=== PATIENT | female | born 1965 | race Caucasian/White ===

== ENCOUNTER 2016-09-09 15:47 | Emergency (ER) | payer OTHER ==
[2016-09-09 15:57] VITALS: BP 104/78
[2016-09-09] MEDS ORDERED: Sodium Chloride 0.9% 10 ML Syringe FLUSH PRN (16:19)
[2016-09-09] MEDS ORDERED: Sodium Chloride 0.9% 1,000 ML IV SCH (16:30)
--- NOTE | 2016-09-09 17:10 | EDM.PDOC ---
ED HPI GENERAL MEDICAL PROBLEM - General Chief Complaint: Genitourinary Problem Stated Complaint: LOWER BACK PAIN Time Seen by Provider: 09/09/16 16:09 Source of Information: Reports: Patient History Limitations: Reports: No Limitations - History of Present Illness INITIAL COMMENTS - FREE TEXT/NARRATIVE: The patient presents with bilateral low back pain that has gotten worse over the past week. She denies any injury. She did have surgery on her back a few months ago. She also has been having some hematuria, frequency and burning with urination. She went to the walk in clinic and she was checked for a UTI and bacterial vaginosis. She was put on antibiotics until results came back and they were negative. She already finished the antibiotics. She saw Raquel Whitt in the ER and she was started on some flexeril for her back. That has not helped much. She has fever and chills with it at times and she has some abdominal pain at times. She also had breast augmentation done 2 months ago and she had a blister develop and that has opened up and there has been a sore for nearly 2 months. She has been on oral antibiotics and topical antibiotics with no help. Onset: Gradual Duration: Week(s): (1) Location: Reports: Abdomen, Back Quality: Reports: Ache Severity: Moderate Improves with: Reports: None Worsens with: Reports: Movement Context: Reports: Other (No injury noted) Associated Symptoms: Reports: Fever/Chills. Denies: Chest Pain, Cough, Nausea/ Vomiting, Shortness of Breath Bilateral Flank Pain Score (Numeric/FACES): 5 - Related Data Allergies Allergy/AdvReac Type Severity Reaction Status Date / Time lactose Allergy Hives Verified 12/28/14 18:12 latex Allergy Rash Verified 09/09/16 15:57 morphine Allergy Nausea Verified 12/28/14 18:12 pseudoephedrine Allergy Other Verified 12/28/14 18:12 triazolam Allergy Other Verified 12/28/14 18:12 Home Meds: Home Meds Multivitamin [Gummi Bear Multivitamin] 1 tab PO DAILY 12/28/14 [History] Tylenol. 1,300 mg PO Q8H PRN 12/28/14 [History] Vitamin B Complex 3 cap PO DAILY 12/28/14 [History] Cephalexin [Keflex] 500 mg PO Q6HR #40 cap 09/09/16 [Rx] Cyclobenzaprine [Flexeril] 10 mg PO DAILY 09/09/16 [History] DULoxetine [Cymbalta] 60 mg PO DAILY 09/09/16 [History] Lisinopril/Hydrochlorothiazide [Lisinopril-Hctz 10-12.5 mg Tab] 1 tab PO DAILY 09/09/16 [History] Phenazopyridine HCl 200 mg PO DAILY 09/09/16 [History] buPROPion [Wellbutrin XL] 1 tab PO DAILY 09/09/16 [History] Past Medical History Other HEENT History: reading glasses Cardiovascular History: Reports: Hypertension Other OB/BYN History: Psychiatric History: Reports: Anxiety, Depression Other Hematologic History: Factor V Social & Family History - Tobacco Use Smoking Status *Q: Never Smoker - Caffeine Use Caffeine Use: Reports: None - Recreational Drug Use Recreational Drug Use: No ED ROS GENERAL - Review of Systems Review Of Systems: See Below Constitutional: Reports: No Symptoms HEENT: Reports: No Symptoms Respiratory: Reports: No Symptoms Cardiovascular: Reports: No Symptoms Endocrine: Reports: No Symptoms GI/Abdominal: Reports: Abdominal Pain : Reports: Dysuria, Frequency Musculoskeletal: Reports: Back Pain (bilateral low back) Skin: Reports: Other (Rash to the left breast) ED EXAM, RENAL/ - Physical Exam Exam: See Below Exam Limited By: No Limitations General Appearance: Alert, No Apparent Distress Ears: Normal External Exam Nose: Normal Inspection Head: Atraumatic, Normocephalic Neck: Normal Inspection Respiratory/Chest: No Respiratory Distress, Lungs Clear, Normal Breath Sounds Cardiovascular: Regular Rate, Rhythm, No Edema, No Murmur GI/Abdominal: Soft, Non-Tender, No Organomegaly, No Mass Back Exam: Normal Inspection Extremities: Normal Inspection Neurological: Alert, Oriented, No Motor/Sensory Deficits Course - Vital Signs Last Recorded V/S: Last Vital Signs Temp 99.0 F 09/09/16 15:52 Pulse 90 09/09/16 15:52 Resp 18 09/09/16 15:52 BP 104/78 09/09/16 15:52 Pulse Ox 98 09/09/16 15:52 - Orders/Labs/Meds Orders: Active Orders 24 hr Category Date Time Status Peripheral IV Care [RC] . DIRECTED Care 09/09/16 16:20 Active Sodium Chloride 0.9% [Normal Saline] 1,000 ml Med 09/09/16 16:30 Active IV ASDIRECTED Sodium Chloride 0.9% [Saline Flush] Med 09/09/16 16:19 Active 10 ml FLUSH ASDIRECTED PRN Peripheral IV Insertion Adult [OM.PC] Stat Oth 09/09/16 16:19 Ordered Medication Orders Sodium Chloride (Normal Saline) 1,000 mls @ 125 mls/hr IV ASDIRECTED ELIO Last Admin: 09/09/16 16:38 Dose: 125 mls/hr Sodium Chloride (Saline Flush) 10 ml FLUSH ASDIRECTED PRN PRN Reason: Keep Vein Open Last Admin: 09/09/16 16:38 Dose: 10 ml Labs: Laboratory Tests 09/09/16 09/09/16 09/09/16 Range/Units 16:39 16:39 16:40 WBC 7.38 (3.98-10.04) K/mm3 RBC 4.29 (3.98-5.22) M/mm3 Hgb 12.8 (11.2-15.7) gm/L Hct 38.9 (34.1-44.9) % MCV 90.7 (79.4-94.8) fl MCH 29.8 (25.6-32.2) pg MCHC 32.9 (32.2-35.5) g/dl RDW Std Deviation 43.1 (36.4-46.3) fL Plt Count 256 (182-369) K/mm3 MPV 9.0 L (9.4-12.3) fl Neut % (Auto) 52.7 (34.0-71.1) % Lymph % (Auto) 30.8 (19.3-51.7) % [place] % (Auto) 9.8 (4.7-12.5) % Eos % (Auto) 6.1 H (0.7-5.8) Baso % (Auto) 0.5 (0.1-1.2) % Neut # (Auto) 3.89 (1.56-6.13) K/mm3 Lymph # (Auto) 2.27 (1.18-3.74) K/mm3 [place] # (Auto) 0.72 H (0.24-0.36) K/mm3 Eos # (Auto) 0.45 H (0.04-0.36) K/mm3 Baso # (Auto) 0.04 (0.01-0.08) K/mm3 Sodium 142 (136-145) mEq/L Potassium 3.6 (3.5-5.1) mEq/L Chloride 104 (98-107) mEq/L Carbon Dioxide 32 (21-32) mEq/L Anion Gap 9.6 (5-15) BUN 13 (7-18) mg/dL Creatinine 0.9 (0.55-1.02) mg/dL Est Cr Clr Drug Dosing 65.05 mL/min Estimated GFR (MDRD) > 60 (>60) mL/min BUN/Creatinine Ratio 14.4 (14-18) Glucose 103 (74-106) mg/dL Calcium 8.8 (8.5-10.1) mg/dL Total Bilirubin 0.3 (0.2-1.0) mg/dL AST 26 (15-37) U/L ALT 42 (14-59) U/L Alkaline Phosphatase 65 (46-116) U/L Total Protein 7.0 (6.4-8.2) g/dl Albumin 3.4 (3.4-5.0) g/dl Globulin 3.6 gm/dL Albumin/Globulin Ratio 0.9 L (1-2) Lipase 105 (73-393) U/L Urine Color [place] H (Yellow) Urine Appearance Slt cloudy H (Clear) Urine pH 5.0 (5.0-8.0) Ur Specific [place] 1.015 (1.005-1.030) Urine Protein 1+ H (Negative) Urine Glucose (UA) Trace H (Negative) Urine Ketones Trace H (Negative) Urine Occult Blood Negative (Negative) Urine Nitrite Positive H (Negative) Urine Bilirubin 1+ H (Negative) Urine Urobilinogen 2.0 H (0.2-1.0) Ur Leukocyte Esterase 3+ H (Negative) Urine RBC 0-5 (0-5) /hpf Urine WBC 0-5 (0-5) /hpf Ur Epithelial Cells 5-10 H (0-5) /hpf Urine Bacteria Few (FEW) /hpf Hyaline Casts 5-10 H (0-5) /lpf Urine Mucus Few (FEW) /hpf Meds: Medications Generic Name Dose Route Start Last Admin Trade Name Freq PRN Reason Stop Dose Admin Sodium Chloride 1,000 mls @ 125 mls/hr 09/09/16 16:30 09/09/16 16:38 Normal Saline IV 125 mls/hr ASDIRECTED ELIO Administration Sodium Chloride 10 ml 09/09/16 16:19 09/09/16 16:38 Saline Flush FLUSH 10 ml ASDIRECTED PRN Administration Keep Vein Open - Re-Assessments/Exams Free Text/Narrative Re-Assessment/Exam: 09/09/16 17:11 I ordered an IV saline lock, labs, UA and CT of her abdomen and pelvis to look fro a kidney stone. 09/09/16 17:[address] shows incidental findings and no renal calculi. I examined her left breast and she has an ulcer to the lower breast. There is some yellow drainage along the edges. I will have her stop keeping it moist and get her on some keflex that will help with that infection and also the UTI that she has. Departure - Departure Time of Disposition: 18:00 Disposition: Home, Self-Care 01 Condition: good Clinical Impression: UTI, Urinary tract infectious disease Wound of left breast Qualifiers: Encounter type: initial encounter Qualified Code(s): S21.002A - Unspecified open wound of left breast, initial encounter - Discharge Information Prescriptions: Cephalexin [Keflex] 500 mg PO Q6HR #40 cap Referrals: Raquel Whitt PA-C [Primary Care Provider] - 1 Week Forms: ED Department Discharge Additional Instructions: Try to keep the area on your breast dry and take the keflex. Please return if you are worse. Follow up Dr Amandeep ann. - My Orders Last 24 Hours: My Active Orders 09/09/16 16:19 Sodium Chloride 0.9% [Saline Flush] 10 ml FLUSH ASDIRECTED PRN Peripheral IV Insertion Adult [OM.PC] Stat 09/09/16 16:20 Peripheral IV Care [RC] . DIRECTED 09/09/16 16:30 Sodium Chloride 0.9% [Normal Saline] 1,000 ml IV ASDIRECTED - Assessment/Plan Last 24 Hours: My Active Orders 09/09/16 16:19 Sodium Chloride 0.9% [Saline Flush] 10 ml FLUSH ASDIRECTED PRN Peripheral IV Insertion Adult [OM.PC] Stat 09/09/16 16:20 Peripheral IV Care [RC] . DIRECTED 09/09/16 16:30 Sodium Chloride 0.9% [Normal Saline] 1,000 ml IV ASDIRECTED
--- NOTE | 2016-09-09 17:15 | CT ---
CT abdomen and pelvis Technique: Multiple axial sections were obtained from above the dome of the diaphragm inferiorly through the pubic symphysis. Intravenous and oral contrast not utilized. Study has been performed as a ureteral stone protocol. Findings: Right and left kidneys show no abnormal calcifications. No ureteral dilatation or ureteral stone is seen. No bladder calculi are seen. Visualized lung bases shows nothing acute. Liver and spleen have an unremarkable noncontrast appearance. Previous gastric surgery is noted. Adrenal glands show no nodule. Pancreas appears within normal limits. Aorta shows no aneurysmal dilatation. Appendix is not visualized with certainty. No pelvic mass or adenopathy seen. No free fluid or inflammatory change is seen within the abdomen or within the pelvis. Bone window settings were reviewed which shows mild scoliosis within the spine with mild degenerative change. Impression: 1. Incidental findings as noted above. 2. No renal calculi, ureteral dilatation or ureteral stone is seen. Nothing acute is identified. Diagnostic code #2
== END 2016-09-09 18:10 | disposition home or self-care (01) ==
LOC: JD.ED 15:47
DX: N39.0 Urinary tract infection, site not specified (principal); S21.002A Unspecified open wound of left breast, initial encounter; I10 Essential (primary) hypertension; F41.9 Anxiety disorder, unspecified; F32.9 Major depressive disorder, single episode, unspecified; Z79.899 Other long term (current) drug therapy; Z88.5 Allergy status to narcotic agent; Z88.8 Allergy status to other drugs, medicaments and biological substances; Z91.040 Latex allergy status; Z91.018 Allergy to other foods
CPT/HCPCS: 36415; 74176; 80053; 81001; 83690; 85025; 96360; 99284; J7040; J7050

== ENCOUNTER 2017-01-16 13:50 | Inpatient (IN) | payer OTHER ==
[~2017-01-16 13:50] MED LIST: Naloxone 2 MG/2 ML Syringe ONE
[2017-01-16] MEDS ORDERED: Sodium Chloride 0.9% 10 ML Syringe FLUSH PRN (14:00)
[2017-01-16] MEDS ORDERED: Succinylcholine 200 MG/10 ML MDV IV ONE (14:03)
[2017-01-16] MEDS ORDERED: Etomidate 2 MG/ML 20 ML SDV IVPUSH ONE ×2 (14:03→22:22)
[2017-01-16 14:29] LABS: ACETAMINOPHEN 32 ug/mL (10-30)
[2017-01-16] MEDS: Sodium Chloride 0.9% 1,000 ML IV SCH ×3 (14:51→19:15)
--- NOTE | 2017-01-16 14:58 | CT ---
Head CT Technique: Multiple axial sections through the brain were obtained. Intravenous contrast was not utilized. Comparison: No prior intracranial imaging. Findings: Ventricles along with basal cisterns and sulci over the convexities appear within normal limits for the patient's age. No abnormal parenchymal densities are seen. No evidence of intracranial hemorrhage. No midline shift or mass effect is seen. Bone window settings were reviewed which shows no acute calvarial abnormality. Hypoplastic under aerated left mastoid sinus is incidentally noted as a normal variant. Impression: 1. Incidental finding. 2. Nothing acute is identified on noncontrast head CT study. Diagnostic code #1
--- NOTE | 2017-01-16 15:13 | EDM.PDOC ---
ED HPI GENERAL MEDICAL PROBLEM - General Chief Complaint: Drug or Alcohol Abuse Stated Complaint: [facility] Time Seen by Provider: 01/16/17 14:00 Source of Information: Reports: EMS, Family History Limitations: Reports: Altered Mental Status - History of Present Illness INITIAL COMMENTS - FREE TEXT/NARRATIVE: The patient texted her that she was going to hurt herself. She was found at home with some empty pill bottles. They included clonazepam 0.5mg, cyclobenzaprine, duloxetine, aleve pm and acetaminophen. Most pills were gone. She would localize to pain but she would not talk or open her eyes. He family says she has been depressed. She has never done anything like this before. There was also some alcohol near her. EMS brought her in. Onset: Gradual Duration: Minutes: Severity: Severe Improves with: Reports: None Worsens with: Reports: None - Related Data Allergies Allergy/AdvReac Type Severity Reaction Status Date / Time lactose Allergy Hives Verified 12/28/14 18:12 latex Allergy Rash Verified 09/09/16 15:57 morphine Allergy Nausea Verified 12/28/14 18:12 pseudoephedrine Allergy Other Verified 12/28/14 18:12 triazolam Allergy Other Verified 12/28/14 18:12 Home Meds: Home Meds Multivitamin [Gummi Bear Multivitamin] 1 tab PO DAILY 12/28/14 [History] Tylenol. 1,300 mg PO Q8H PRN 12/28/14 [History] Vitamin B Complex 3 cap PO DAILY 12/28/14 [History] Cephalexin [Keflex] 500 mg PO Q6HR #40 cap 09/09/16 [Rx] Cyclobenzaprine [Flexeril] 10 mg PO DAILY 09/09/16 [History] DULoxetine [Cymbalta] 60 mg PO DAILY 09/09/16 [History] Lisinopril/Hydrochlorothiazide [Lisinopril-Hctz 10-12.5 mg Tab] 1 tab PO DAILY 09/09/16 [History] Phenazopyridine HCl 200 mg PO DAILY 09/09/16 [History] buPROPion [Wellbutrin XL] 1 tab PO DAILY 09/09/16 [History] Past Medical History Other HEENT History: reading glasses Cardiovascular History: Reports: Hypertension Other OB/BYN History: Psychiatric History: Reports: Anxiety, Depression Other Hematologic History: Factor V Social & Family History - Family History Family Medical History: Noncontributory - Tobacco Use Smoking Status *Q: Never Smoker - Caffeine Use Caffeine Use: Reports: Coffee - Recreational Drug Use Recreational Drug Use: No ED ROS GENERAL - Review of Systems Review Of Systems: Unable To Obtain - Physical Exam Exam: See Below Exam Limited By: Altered Mental Status General Appearance: Lethargic Eye Exam: Bilateral Eye: PERRL Ears: Normal External Exam Nose: Normal Inspection Head Exam: Atraumatic, Normocephalic Neck: Normal Inspection Respiratory/Chest: No Respiratory Distress, Lungs Clear, Normal Breath Sounds Cardiovascular: Regular Rate, Rhythm, No Edema, No Murmur GI/Abdominal: Soft, Non-Tender, No Organomegaly, No Mass Neuro Exam (Abbreviated): Other (Lethargic and she will localize to pain but she does not talk or moan and she does not open her eyes.) Endotracheal Intubation - Endotracheal Intubation Time of Intubation: 14:00 ET Intubation Indication: Airway Protection Preparation: Suction, Balloon Tested, BVM Set Up, Difficult Airway Equip Pre-Oxygenation: Other (NC at 6L) Anesthesia Meds: Etomidate, Succinylcholine Placement: Orotracheal, Cuffed, Uncomplicated Placement Cords Visualized: Yes Number of Attempts: 1 Confirmed By: CO2 Indicator, Bilateral Breath Sounds, Chest Xray Tube Secured By: By RT EKG INTERPRETATION EKG Date: 01/16/17 Time: 14:38 Rhythm: NSR Rate (Beats/Min): 79 [place]: Normal P-Wave: Present QRS: Normal ST-T: Normal QT: Normal Course - Vital Signs Last Recorded V/S: Last Vital Signs Temp 98.5 F 01/16/17 14:31 Pulse 94 01/16/17 14:31 Resp 14 01/16/17 14:31 BP 121/49 L 01/16/17 14:31 Pulse Ox 100 01/16/17 14:31 - Orders/Labs/Meds Orders: Active Orders 24 hr Category Date Time Status Cardiac Monitoring [RC] . DIRECTED Care 01/16/17 14:00 Active EKG Documentation Completion [RC] STAT Care 01/16/17 14:01 Active Peripheral IV Care [RC] . DIRECTED Care 01/16/17 14:01 Active Ventilator Assessment [RT Ventilator, Adult] [RC] Care 01/16/17 14:10 Active ASDIRECTED Chest 1V Frontal [CR] Stat Exams 01/16/17 14:01 Taken Propofol [Diprivan 100 ML] 100 ml Med 01/16/17 14:15 Active IV TITRATE Sodium Chloride 0.9% [Normal Saline] 1,000 ml Med 01/16/17 14:00 Active IV ASDIRECTED Sodium Chloride 0.9% [Saline Flush] Med 01/16/17 14:00 Active 10 ml FLUSH ASDIRECTED PRN Desired Level of Sedation (RASS) [AST] Click To Edit Oth 01/16/17 14:04 Ordered Peripheral IV Insertion Adult [OM.PC] Stat Oth 01/16/17 14:00 Ordered Medication Orders Sodium Chloride (Normal Saline) 1,000 mls @ 125 mls/hr IV ASDIRECTED ELIO Last Admin: 01/16/17 14:51 Dose: 125 mls/hr Propofol (Diprivan 100 Ml) 100 mls @ 1.89 mls/hr IV TITRATE ELIO; 5 MCG/KG/MIN PRN Reason: Protocol Last Admin: 01/16/17 14:53 Dose: 5 mcg/kg/min, 1.89 mls/hr Sodium Chloride (Saline Flush) 10 ml FLUSH ASDIRECTED PRN PRN Reason: Keep Vein Open Last Admin: 01/16/17 14:52 Dose: 10 ml Labs: Laboratory Tests 01/16/17 01/16/17 01/16/17 Range/Units 14:00 14:00 14:00 WBC 8.47 (3.98-10.04) K/mm3 RBC 4.26 (3.98-5.22) M/mm3 Hgb 12.9 (11.2-15.7) gm/L Hct 37.9 (34.1-44.9) % MCV 89.0 (79.4-94.8) fl MCH 30.3 (25.6-32.2) pg MCHC 34.0 (32.2-35.5) g/dl RDW Std Deviation 41.3 (36.4-46.3) fL Plt Count 260 (182-369) K/mm3 MPV 9.0 L (9.4-12.3) fl Neut % (Auto) 40.0 (34.0-71.1) % Lymph % (Auto) 38.6 (19.3-51.7) % [place] % (Auto) 8.0 (4.7-12.5) % Eos % (Auto) 12.5 H (0.7-5.8) Baso % (Auto) 0.7 (0.1-1.2) % Neut # (Auto) 3.38 (1.56-6.13) K/mm3 Lymph # (Auto) 3.27 (1.18-3.74) K/mm3 [place] # (Auto) 0.68 H (0.24-0.36) K/mm3 Eos # (Auto) 1.06 H (0.04-0.36) K/mm3 Baso # (Auto) 0.06 (0.01-0.08) K/mm3 Sodium 143 (136-145) mEq/L Potassium 3.4 L (3.5-5.1) mEq/L Chloride 104 (98-107) mEq/L Carbon Dioxide 29 (21-32) mEq/L Anion Gap 13.4 (5-15) BUN 9 (7-18) mg/dL Creatinine 0.8 (0.55-1.02) mg/dL Est Cr Clr Drug Dosing TNP Estimated GFR (MDRD) > 60 (>60) mL/min BUN/Creatinine Ratio 11.3 L (14-18) Glucose 84 (74-106) mg/dL Calcium 8.7 (8.5-10.1) mg/dL Total Bilirubin 0.8 (0.2-1.0) mg/dL AST 24 (15-37) U/L ALT 30 (14-59) U/L Alkaline Phosphatase 48 (46-116) U/L Troponin I 0.024 (0.00-0.056) ng/mL Total Protein 6.4 (6.4-8.2) g/dl Albumin 4.0 (3.4-5.0) g/dl Globulin 2.4 gm/dL Albumin/Globulin Ratio 1.7 (1-2) Salicylates 1.1 L (2.8-20) mg/dL Urine Opiates Screen (NEGATIVE) Ur Buprenorphine Scrn (NEGATIVE) Ur Oxycodone Screen (NEGATIVE) Urine Methadone Screen (NEGATIVE) Ur Propoxyphene Screen (NEGATIVE) Acetaminophen 32 H (10-30) ug/mL Ur Barbiturates Screen (NEGATIVE) Ur Tricyclics Screen (NEGATIVE) Ur Phencyclidine Scrn (NEGATIVE) Ur Amphetamine Screen (NEGATIVE) U Methamphetamines Scrn (NEGATIVE) U Benzodiazepines Scrn (NEGATIVE) U Cocaine Metab Screen (NEGATIVE) U Marijuana (THC) Screen (NEGATIVE) Ethyl Alcohol 0.10 (0.00) gm% 01/16/17 Range/Units 14:30 WBC (3.98-10.04) K/mm3 RBC (3.98-5.22) M/mm3 Hgb (11.2-15.7) gm/L Hct (34.1-44.9) % MCV (79.4-94.8) fl MCH (25.6-32.2) pg MCHC (32.2-35.5) g/dl RDW Std Deviation (36.4-46.3) fL Plt Count (182-369) K/mm3 MPV (9.4-12.3) fl Neut % (Auto) (34.0-71.1) % Lymph % (Auto) (19.3-51.7) % [place] % (Auto) (4.7-12.5) % Eos % (Auto) (0.7-5.8) Baso % (Auto) (0.1-1.2) % Neut # (Auto) (1.56-6.13) K/mm3 Lymph # (Auto) (1.18-3.74) K/mm3 [place] # (Auto) (0.24-0.36) K/mm3 Eos # (Auto) (0.04-0.36) K/mm3 Baso # (Auto) (0.01-0.08) K/mm3 Sodium (136-145) mEq/L Potassium (3.5-5.1) mEq/L Chloride (98-107) mEq/L Carbon Dioxide (21-32) mEq/L Anion Gap (5-15) BUN (7-18) mg/dL Creatinine (0.55-1.02) mg/dL Est Cr Clr Drug Dosing Estimated GFR (MDRD) (>60) mL/min BUN/Creatinine Ratio (14-18) Glucose (74-106) mg/dL Calcium (8.5-10.1) mg/dL Total Bilirubin (0.2-1.0) mg/dL AST (15-37) U/L ALT (14-59) U/L Alkaline Phosphatase (46-116) U/L Troponin I (0.00-0.056) ng/mL Total Protein (6.4-8.2) g/dl Albumin (3.4-5.0) g/dl Globulin gm/dL Albumin/Globulin Ratio (1-2) Salicylates (2.8-20) mg/dL Urine Opiates Screen Negative (NEGATIVE) Ur Buprenorphine Scrn Negative (NEGATIVE) Ur Oxycodone Screen Negative (NEGATIVE) Urine Methadone Screen Negative (NEGATIVE) Ur Propoxyphene Screen Negative (NEGATIVE) Acetaminophen (10-30) ug/mL Ur Barbiturates Screen Negative (NEGATIVE) Ur Tricyclics Screen Negative (NEGATIVE) Ur Phencyclidine Scrn Negative (NEGATIVE) Ur Amphetamine Screen Negative (NEGATIVE) U Methamphetamines Scrn Negative (NEGATIVE) U Benzodiazepines Scrn Negative (NEGATIVE) U Cocaine Metab Screen Negative (NEGATIVE) U Marijuana (THC) Screen Negative (NEGATIVE) Ethyl Alcohol (0.00) gm% Meds: Medications Generic Name Dose Route Start Last Admin Trade Name Freq PRN Reason Stop Dose Admin Sodium Chloride 1,000 mls @ 125 mls/hr 01/16/17 14:00 01/16/17 14:51 Normal Saline IV 125 mls/hr ASDIRECTED ELIO Administration Propofol 100 mls @ 1.89 mls/hr 01/16/17 14:15 01/16/17 14:53 Diprivan 100 Ml IV 5 mcg/kg/min TITRATE ELIO 1.89 mls/hr Protocol Administration 5 MCG/KG/MIN Sodium Chloride 10 ml 01/16/17 14:00 01/16/17 14:52 Saline Flush FLUSH 10 ml ASDIRECTED PRN Administration Keep Vein Open Discontinued Medications Generic Name Dose Route Start Last Admin Trade Name Freq PRN Reason Stop Dose Admin Etomidate 20 mg 01/16/17 14:03 01/16/17 14:52 Amidate IVPUSH 01/16/17 14:04 20 mg ONETIME ONE Administration Naloxone HCl 2 mg 01/16/17 14:02 01/16/17 14:52 Narcan IVPUSH 01/16/17 14:03 2 mg ONETIME ONE Administration Succinylcholine Chloride 100 mg 01/16/17 14:03 01/16/17 14:52 Quelicin IV 01/16/17 14:04 100 mg ONETIME ONE Administration - Re-Assessments/Exams Free Text/Narrative Re-Assessment/Exam: 01/16/17 15:17 The patient came in by EMS. She would localize to pain. I was worried about her airway so I secured her airway. I used a 7.5tube, etomidate and succinylcholine. I used a propofol drip after for sedation. Her CXR looked good. Her EKG shows a NSR with no acute changes. Her CBC and CMP look good. Her head CT was negative. Her UDS was negative. Her alcohol was 0.1. Her acetaminophen and salicylates were negative at this time. Poison control recommended redrawing a acetaminophen and salicylate level. I will do that and an ABG. Dr Tate is aware of the patient. 01/16/17 15:25 Critical care time is 1 hour. Departure - Departure Time of Disposition: 15:25 Disposition: Admitted As Inpatient 64 Condition: Critical Clinical Impression: Alcohol abuse Overdose Qualifiers: Encounter type: initial encounter Injury intent: intentional self-harm Qualified Code(s): T50.902A - Poisoning by unspecified drugs, medicaments and biological substances, intentional self-harm, initial encounter - Discharge Information - My Orders Last 24 Hours: My Active Orders 01/16/17 14:00 Cardiac Monitoring [RC] . DIRECTED Sodium Chloride 0.9% [Normal Saline] 1,000 ml IV ASDIRECTED Sodium Chloride 0.9% [Saline Flush] 10 ml FLUSH ASDIRECTED PRN Peripheral IV Insertion Adult [OM.PC] Stat 01/16/17 14:01 EKG Documentation Completion [RC] STAT Peripheral IV Care [RC] . DIRECTED Chest 1V Frontal [CR] Stat 01/16/17 14:04 Desired Level of Sedation (RASS) [AST] Click To Edit 01/16/17 14:10 Ventilator Assessment [RT Ventilator, Adult] [RC] ASDIRECTED 01/16/17 14:15 Propofol [Diprivan 100 ML] 100 ml IV TITRATE - Assessment/Plan Last 24 Hours: My Active Orders 01/16/17 14:00 Cardiac Monitoring [RC] . DIRECTED Sodium Chloride 0.9% [Normal Saline] 1,000 ml IV ASDIRECTED Sodium Chloride 0.9% [Saline Flush] 10 ml FLUSH ASDIRECTED PRN Peripheral IV Insertion Adult [OM.PC] Stat 01/16/17 14:01 EKG Documentation Completion [RC] STAT Peripheral IV Care [RC] . DIRECTED Chest 1V Frontal [CR] Stat 01/16/17 14:04 Desired Level of Sedation (RASS) [AST] Click To Edit 01/16/17 14:10 Ventilator Assessment [RT Ventilator, Adult] [RC] ASDIRECTED 01/16/17 14:15 Propofol [Diprivan 100 ML] 100 ml IV TITRATE
[2017-01-16] MEDS ORDERED: Midazolam 1 MG/ML 5 ML SDV IVPUSH ONE (15:34)
[2017-01-16] MEDS ORDERED: Midazolam 1 MG/ML 2 ML SDV ONE (15:46)
[2017-01-16] MEDS ORDERED: Morphine 2 MG/ML Syringe IVPUSH PRN (16:12)
[2017-01-16] MEDS ORDERED: Albuterol/Ipratropium 3.0-0.5 MG/3 ML Neb Soln NEB PRN (16:12)
[2017-01-16] MEDS ORDERED: Ondansetron 4 MG/2 ML SDV IV PRN (16:12)
[2017-01-16] MEDS ORDERED: hydrALAZINE 20 MG/ML SDV IVPUSH PRN (16:29)
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
[2017-01-16] MEDS ORDERED: Acetylcysteine 20% 200 MG/ML 30 ML SDV IV ONE (16:49)
[2017-01-16] MEDS ORDERED: ACETYLCYSTEINE IV SCH ×2 (17:30)
[2017-01-16] MEDS ORDERED: WATER IV SCH ×2 (17:30)
[2017-01-16] MEDS ORDERED: DEXTROSE 5% IV SCH ×2 (17:30)
[2017-01-16] MEDS ORDERED: Succinylcholine 200 MG/10 ML MDV ONE (22:22)
[2017-01-17] MEDS: Sodium Chloride 0.9% 1,000 ML IV SCH ×2 (03:15→11:12)
--- NOTE | 2017-01-17 08:22 | CR ---
Chest: Portable view of the chest was obtained. Comparison: Previous chest x-ray of 03/17/16. Heart size and mediastinum are within normal limits. Endotracheal tube is seen with tip lying slightly below the level of the clavicles in satisfactory position. Nasogastric tube is seen with tip lying within the proximal stomach. Lungs are clear for portable supine technique. Bony structures are grossly intact. Impression: 1. Satisfactory position of endotracheal tube. Nasogastric tube lies within the proximal stomach. 2. Nothing acute is otherwise seen on frontal chest x-ray. Diagnostic code #3
[2017-01-17] MEDS ORDERED: Pantoprazole 40 MG Vial IVPUSH SCH (09:00)
--- NOTE | 2017-01-17 09:54 | CR ---
Chest: Frontal view of the chest was obtained. Comparison: Previous chest x-ray of 01/16/17. Heart size and mediastinum are within normal limits. Previous nasogastric tube and endotracheal tube have been removed. Lungs are clear. Bony structures are grossly intact. Impression: 1. Endotracheal tube and nasogastric tube have been removed in the interim from prior study. 2. Nothing acute is otherwise seen on frontal chest x-ray. Diagnostic code #1
[2017-01-17] MEDS: Enoxaparin 40 MG/0.4 ML Syringe SUBCUT SCH (10:54)
--- NOTE | 2017-01-17 13:15 | PCM.PN ---
- General Info Date of Service: 01/17/17 Functional Status: Reports: Urinating - Review of Systems General: Reports: No Symptoms HEENT: Reports: No Symptoms Pulmonary: Reports: No Symptoms Cardiovascular: Reports: No Symptoms Gastrointestinal: Reports: No Symptoms Genitourinary: Reports: No Symptoms Musculoskeletal: Reports: No Symptoms Skin: Reports: No Symptoms Neurological: Reports: No Symptoms Psychiatric: Reports: No Symptoms - Patient Data Vitals - Most Recent: Last Vital Signs Temp 37.1 C 01/17/17 08:00 Pulse 76 01/17/17 08:00 Resp 16 01/17/17 08:00 BP 131/72 01/17/17 08:00 Pulse Ox 100 01/17/17 08:23 Weight - Most Recent: 72.529 kg I&O - Last 24 Hours: Intake & Output 01/16/17 01/17/17 01/17/17 22:59 06:59 14:59 Intake Total 1748 Output Total 425 505 250 Balance -425 1243 -250 Lab Results Last 24 Hours: Laboratory Results - last 24 hr 01/16/17 01/16/17 01/16/17 Range/Units 16:03 18:16 19:45 WBC (3.98-10.04) K/mm3 RBC (3.98-5.22) M/mm3 Hgb (11.2-15.7) gm/L Hct (34.1-44.9) % MCV (79.4-94.8) fl MCH (25.6-32.2) pg MCHC (32.2-35.5) g/dl RDW Std Deviation (36.4-46.3) fL Plt Count (182-369) K/mm3 MPV (9.4-12.3) fl Neut % (Auto) (34.0-71.1) % Lymph % (Auto) (19.3-51.7) % [place] % (Auto) (4.7-12.5) % Eos % (Auto) (0.7-5.8) Baso % (Auto) (0.1-1.2) % Neut # (Auto) (1.56-6.13) K/mm3 Lymph # (Auto) (1.18-3.74) K/mm3 [place] # (Auto) (0.24-0.36) K/mm3 Eos # (Auto) (0.04-0.36) K/mm3 Baso # (Auto) (0.01-0.08) K/mm3 Puncture Site ABG pH (7.35-7.45) ABG pCO2 (35.0-45.0) mmHg ABG pO2 (80.0-100.0) mmHg ABG HCO3 (22.0-26.0) meq/L ABG O2 Saturation (96.0-97.0) % ABG Base Excess (-2-2.0) Zuhair Test A-a Gradient mmHg O2 Delivery Device Oxygen Flow Rate FiO2 (21.00-100.00) % Tidal Volume cc PEEP cmH20 Sodium (136-145) mEq/L Potassium (3.5-5.1) mEq/L Chloride (98-107) mEq/L Carbon Dioxide (21-32) mEq/L Anion Gap (5-15) BUN (7-18) mg/dL Creatinine (0.55-1.02) mg/dL Est Cr Clr Drug Dosing mL/min Estimated GFR (MDRD) (>60) mL/min BUN/Creatinine Ratio (14-18) Glucose (74-106) mg/dL POC Glucose 99 (70-105) mg/dL Calcium (8.5-10.1) mg/dL Phosphorus (2.6-4.7) mg/dL Magnesium (1.8-2.4) mg/dl Salicylates 0.8 L (2.8-20) mg/dL Acetaminophen 30 (10-30) ug/mL 01/17/17 01/17/17 01/17/17 Range/Units 00:36 05:00 06:39 WBC (3.98-10.04) K/mm3 RBC (3.98-5.22) M/mm3 Hgb (11.2-15.7) gm/L Hct (34.1-44.9) % MCV (79.4-94.8) fl MCH (25.6-32.2) pg MCHC (32.2-35.5) g/dl RDW Std Deviation (36.4-46.3) fL Plt Count (182-369) K/mm3 MPV (9.4-12.3) fl Neut % (Auto) (34.0-71.1) % Lymph % (Auto) (19.3-51.7) % [place] % (Auto) (4.7-12.5) % Eos % (Auto) (0.7-5.8) Baso % (Auto) (0.1-1.2) % Neut # (Auto) (1.56-6.13) K/mm3 Lymph # (Auto) (1.18-3.74) K/mm3 [place] # (Auto) (0.24-0.36) K/mm3 Eos # (Auto) (0.04-0.36) K/mm3 Baso # (Auto) (0.01-0.08) K/mm3 Puncture Site Rt brachial ABG pH 7.42 (7.35-7.45) ABG pCO2 39.0 (35.0-45.0) mmHg ABG pO2 110.0 H (80.0-100.0) mmHg ABG HCO3 24.9 (22.0-26.0) meq/L ABG O2 Saturation 99.1 H (96.0-97.0) % ABG Base Excess 0.9 (-2-2.0) Zuhair Test Positive A-a Gradient 33 mmHg O2 Delivery Device Ventilator Oxygen Flow Rate 0.0 FiO2 30.00 (21.00-100.00) % Tidal Volume 400.0 cc PEEP 5.0 cmH20 Sodium (136-145) mEq/L Potassium (3.5-5.1) mEq/L Chloride (98-107) mEq/L Carbon Dioxide (21-32) mEq/L Anion Gap (5-15) BUN (7-18) mg/dL Creatinine (0.55-1.02) mg/dL Est Cr Clr Drug Dosing mL/min Estimated GFR (MDRD) (>60) mL/min BUN/Creatinine Ratio (14-18) Glucose (74-106) mg/dL POC Glucose 96 76 (70-105) mg/dL Calcium (8.5-10.1) mg/dL Phosphorus (2.6-4.7) mg/dL Magnesium (1.8-2.4) mg/dl Salicylates (2.8-20) mg/dL Acetaminophen (10-30) ug/mL 01/17/17 01/17/17 Range/Units 06:47 06:47 WBC 10.83 H (3.98-10.04) K/mm3 RBC 3.67 L (3.98-5.22) M/mm3 Hgb 11.0 L (11.2-15.7) gm/L Hct 33.0 L (34.1-44.9) % MCV 89.9 (79.4-94.8) fl MCH 30.0 (25.6-32.2) pg MCHC 33.3 (32.2-35.5) g/dl RDW Std Deviation 42.4 (36.4-46.3) fL Plt Count 215 (182-369) K/mm3 MPV 9.2 L (9.4-12.3) fl Neut % (Auto) 69.5 (34.0-71.1) % Lymph % (Auto) 14.6 L (19.3-51.7) % [place] % (Auto) 8.7 (4.7-12.5) % Eos % (Auto) 6.6 H (0.7-5.8) Baso % (Auto) 0.4 (0.1-1.2) % Neut # (Auto) 7.53 H (1.56-6.13) K/mm3 Lymph # (Auto) 1.58 (1.18-3.74) K/mm3 [place] # (Auto) 0.94 H (0.24-0.36) K/mm3 Eos # (Auto) 0.72 H (0.04-0.36) K/mm3 Baso # (Auto) 0.04 (0.01-0.08) K/mm3 Puncture Site ABG pH (7.35-7.45) ABG pCO2 (35.0-45.0) mmHg ABG pO2 (80.0-100.0) mmHg ABG HCO3 (22.0-26.0) meq/L ABG O2 Saturation (96.0-97.0) % ABG Base Excess (-2-2.0) Zuhair Test A-a Gradient mmHg O2 Delivery Device Oxygen Flow Rate FiO2 (21.00-100.00) % Tidal Volume cc PEEP cmH20 Sodium 144 (136-145) mEq/L Potassium 3.3 L (3.5-5.1) mEq/L Chloride 110 H (98-107) mEq/L Carbon Dioxide 25 (21-32) mEq/L Anion Gap 12.3 (5-15) BUN 10 (7-18) mg/dL Creatinine 0.6 (0.55-1.02) mg/dL Est Cr Clr Drug Dosing 105.45 mL/min Estimated GFR (MDRD) > 60 (>60) mL/min BUN/Creatinine Ratio 16.7 (14-18) Glucose 84 (74-106) mg/dL POC Glucose (70-105) mg/dL Calcium 8.2 L (8.5-10.1) mg/dL Phosphorus 4.2 (2.6-4.7) mg/dL Magnesium 1.6 L (1.8-2.4) mg/dl Salicylates (2.8-20) mg/dL Acetaminophen (10-30) ug/mL Med Orders - Current: Current Medications Albuterol/Ipratropium (Duoneb 3.0-0.5 Mg/3 Ml) 3 ml NEB Q4H PRN PRN Reason: Shortness Of Breath/wheezing Enoxaparin Sodium (Lovenox) 40 mg SUBCUT DAILY [facility] Last Admin: 01/17/17 10:54 Dose: 40 mg Hydralazine HCl (Apresoline) 10 mg IVPUSH Q2H PRN PRN Reason: Hypertension Sodium Chloride (Normal Saline) 1,000 mls @ 125 mls/hr IV ASDIRECTED [facility] Last Admin: 01/17/17 11:12 Dose: 125 mls/hr Ibuprofen (Motrin) 600 mg PO Q8H PRN PRN Reason: Headache/Pain Lisinopril (Prinivil) 5 mg PO BID [facility] Ondansetron HCl (Zofran) 4 mg IV Q6H PRN PRN Reason: Nausea/Vomiting Pantoprazole Sodium (Protonix Iv) 40 mg IVPUSH DAILY [facility] Last Admin: 01/17/17 09:42 Dose: 40 mg Sodium Chloride (Saline Flush) 10 ml FLUSH ASDIRECTED PRN PRN Reason: Keep Vein Open Last Admin: 01/16/17 14:52 Dose: 10 ml Discontinued Medications Etomidate (Amidate) 20 mg IVPUSH ONETIME ONE Stop: 01/16/17 14:04 Last Admin: 01/16/17 14:52 Dose: 20 mg Propofol (Diprivan 100 Ml) 100 mls @ 1.89 mls/hr IV TITRATE ELIO; 5 MCG/KG/MIN PRN Reason: Protocol Last Titration: 01/16/17 21:41 Dose: 25 mcg/kg/min, 9.45 mls/hr Acetylcysteine 10,000 mg/ (Dextrose/Water) 300 mls @ 300 mls/hr IV ASDIRECTED ELIO Stop: 01/16/17 18:29 Last Admin: 01/16/17 17:45 Dose: 300 mls/hr Propofol (Diprivan 100 Ml) 100 mls @ 10.35 mls/hr IV TITRATE ELIO; 25 MCG/KG/MIN PRN Reason: Protocol Last Admin: 01/17/17 03:51 Dose: 50 mcg/kg/min, 20.7 mls/hr Midazolam HCl (Versed 1 Mg/Ml) 5 mg IVPUSH ONETIME ONE Stop: 01/16/17 15:35 Last Admin: 01/17/17 12:25 Dose: Not Given Midazolam HCl (Versed 1 Mg/Ml) Confirm Administered Dose 6 mg .ROUTE .STK-MED ONE Stop: 01/16/17 15:47 Last Admin: 01/16/17 15:49 Dose: Not Given Morphine Sulfate (Morphine) 2 mg IVPUSH Q2H PRN PRN Reason: Pain (severe 7-10) Stop: 01/17/17 16:19 Naloxone HCl (Narcan) 2 mg IVPUSH ONETIME ONE Stop: 01/16/17 14:03 Last Admin: 01/16/17 14:52 Dose: 2 mg Naloxone HCl (Narcan) Confirm Administered Dose 4 mg .ROUTE .STK-MED ONE Stop: 01/16/17 13:50 Last Admin: 01/17/17 12:25 Dose: Not Given Succinylcholine Chloride (Quelicin) 100 mg IV ONETIME ONE Stop: 01/16/17 14:04 Last Admin: 01/16/17 14:52 Dose: 100 mg - Exam Quality Assessment: Supplemental Oxygen, DVT Prophylaxis General: Alert, Oriented, No Acute Distress HEENT: Pupils Equal, Pupils Reactive Neck: Supple, Trachea Midline Lungs: Normal Respiratory Effort Cardiovascular: Regular Rate, Regular Rhythm GI/Abdominal Exam: Normal Bowel Sounds, Soft, Non-Tender, No Organomegaly (Female) Exam: Deferred Back Exam: Normal Inspection Extremities: Normal Inspection Skin: Warm Neurological: No New Focal Deficit Psy/Mental Status: Alert, Anxious - Problem List Review Problem List Initiated/Reviewed/Updated: Yes - My Orders Last 24 Hours: My Active Orders 01/17/17 12:54 Notify Provider Consults [RC] ASDIRECTED Consult for Substance Abuse [CONS] Routine Consult to Physician [CONS] Routine 01/17/17 12:58 Ibuprofen [Motrin] 600 mg PO Q8H PRN 01/17/17 13:00 Lisinopril [Prinivil] 5 mg PO BID - Plan Plan:: Assessment: 1. Suicidal gesture by multiple drug overdose. 2. Acute respiratory failure requiring intubation and mechanical ventilation; s/ p extubation. 3. Alcohol abuse with tendency for withdrawal. Plan: 1. Transfer out of ICU on 01/18/17; follow O2 requirements. 2. IV fluid hydration with 0.9% normal saline at 100 mL/h; DC when tolerating diet. 3. Change IV Protonix 40 mg daily to oral formulation. 4. Bronchodilator therapy with albuterol and ipratropium via nebulizer every 4 hours as needed. 5. Nasogastric tube and Magallon catheter management. 6. DVT prophylaxis with Lovenox and SCDs. 7. Addiction counseling consult with Haris Doshi and psychiatric evaluation by Dr. Kinney when patient is stable. 8. Social service evaluation for discharge planning. 9. CODE STATUS: Full code.
[2017-01-17] MEDS: Ibuprofen 600 MG Tab PO PRN ×2 (13:18→21:30)
[2017-01-17] MEDS: Lisinopril 5 MG Tab PO SCH ×2 (13:19→21:30)
[2017-01-17] MEDS ORDERED: Magnesium Sulfate/Water 2 GM in Premix Bag 1 BAG IV SCH (16:29)
[2017-01-17] MEDS: Thiamine 100 MG Tab PO SCH ×2 (16:54→21:30)
[2017-01-17] MEDS: Acetaminophen 325 MG Tab PO PRN (17:18)
--- NOTE | 2017-01-17 21:24 | CONS ---
CONSULTING PHYSICIAN: Haris Shelley LAC DATE OF CONSULTATION: 01/17/2017 TIME: 08:59 p.m. The patient is a 51-year-old female admitted to [facility] on 01/16/2017 following a suicide attempt by multiple drug overdose. I received a request for an alcohol and drug consultation from her medical treatment team at approximately 01:45 p.m. on 01/17/2017. I attempted an alcohol and drug evaluation with the patient, however, many family members were visiting and the patient requested that I come back tomorrow. I reported to Dr. Barbosa regarding the patient's request and to accommodate the patient. I will attempt an alcohol and drug evaluation tomorrow, 01/18/2017, at approximately 01:30 p.m. JUAN JOSÉ /[id number]
[2017-01-17] MEDS: Potassium Chloride 20 MEQ Tab.ER PO SCH (21:30)
[2017-01-18] MEDS: Acetaminophen 325 MG Tab PO PRN ×3 (02:32→16:45)
[2017-01-18] MEDS: Potassium Chloride 20 MEQ Tab.ER PO SCH ×2 (09:21→20:20)
[2017-01-18] MEDS: Pantoprazole 40 MG Tab.CR PO SCH (09:21)
[2017-01-18] MEDS: Enoxaparin 40 MG/0.4 ML Syringe SUBCUT SCH (09:22)
[2017-01-18] MEDS: Lisinopril 5 MG Tab PO SCH ×3 (09:22→20:22)
[2017-01-18] MEDS: Biotin/Folic Acid/Vitamin C/Vitamin B Complex Tab PO SCH (09:22)
--- NOTE | 2017-01-18 12:27 | PCM.PN ---
- General Info Date of Service: 01/18/17 Functional Status: Reports: Tolerating Diet - Review of Systems General: Reports: Weakness HEENT: Reports: No Symptoms Pulmonary: Reports: No Symptoms Cardiovascular: Reports: No Symptoms Gastrointestinal: Reports: No Symptoms Genitourinary: Reports: No Symptoms Musculoskeletal: Reports: No Symptoms Skin: Reports: No Symptoms Neurological: Reports: No Symptoms Psychiatric: Reports: No Symptoms - Patient Data Vitals - Most Recent: Last Vital Signs Temp 37.7 C 01/18/17 12:00 Pulse 93 01/18/17 12:00 Resp 16 01/18/17 12:00 BP 136/73 01/18/17 12:00 Pulse Ox 92 L 01/18/17 12:00 Weight - Most Recent: 76.884 kg I&O - Last 24 Hours: Intake & Output 01/17/17 01/18/17 01/18/17 22:59 06:59 14:59 Intake Total 1821 250 210 Balance 1821 250 210 Med Orders - Current: Current Medications Acetaminophen (Tylenol) 650 mg PO Q6H PRN PRN Reason: Headache/Pain Last Admin: 01/18/17 09:20 Dose: 650 mg Albuterol/Ipratropium (Duoneb 3.0-0.5 Mg/3 Ml) 3 ml NEB Q4H PRN PRN Reason: Shortness Of Breath/wheezing Enoxaparin Sodium (Lovenox) 40 mg SUBCUT DAILY [facility] Last Admin: 01/18/17 09:22 Dose: 40 mg Hydralazine HCl (Apresoline) 10 mg IVPUSH Q2H PRN PRN Reason: Hypertension Ibuprofen (Motrin) 600 mg PO Q8H PRN PRN Reason: Headache/Pain Last Admin: 01/17/17 21:30 Dose: 600 mg Lisinopril (Prinivil) 5 mg PO BID [facility] Last Admin: 01/18/17 09:22 Dose: 5 mg Ondansetron HCl (Zofran) 4 mg IV Q6H PRN PRN Reason: Nausea/Vomiting Pantoprazole Sodium (Protonix) 40 mg PO DAILY [facility] Last Admin: 01/18/17 09:21 Dose: 40 mg Potassium Chloride (Klor-Con M20) 40 meq PO BID [facility] Stop: 01/19/17 09:01 Last Admin: 01/18/17 09:21 Dose: 40 meq Sodium Chloride (Saline Flush) 10 ml FLUSH ASDIRECTED PRN PRN Reason: Keep Vein Open Last Admin: 01/16/17 14:52 Dose: 10 ml Thiamine HCl (Vitamin B-1) 100 mg PO BEDTIME [facility] Last Admin: 01/17/17 21:30 Dose: 100 mg Venlafaxine HCl (Effexor Xr) 75 mg PO DAILY [facility] Stop: 01/19/17 09:01 Venlafaxine HCl (Effexor Xr) 150 mg PO DAILY [facility] Vitamin B Complex/Vit C/Folic Acid (Nephrocaps) 1 tab PO DAILY [facility] Last Admin: 01/18/17 09:22 Dose: 1 tab Discontinued Medications Etomidate (Amidate) 20 mg IVPUSH ONETIME ONE Stop: 01/16/17 14:04 Last Admin: 01/16/17 14:52 Dose: 20 mg Etomidate (Amidate) 40 mg IVPUSH .STK-MED ONE Stop: 01/16/17 22:23 Sodium Chloride (Normal Saline) 1,000 mls @ 125 mls/hr IV ASDIRECTED [facility] Last Admin: 01/17/17 11:12 Dose: 125 mls/hr Propofol (Diprivan 100 Ml) 100 mls @ 1.89 mls/hr IV TITRATE [facility]; 5 MCG/KG/MIN PRN Reason: Protocol Last Titration: 01/16/17 21:41 Dose: 25 mcg/kg/min, 9.45 mls/hr Acetylcysteine 10,000 mg/ (Dextrose/Water) 300 mls @ 300 mls/hr IV ASDIRECTED [facility] Stop: 01/16/17 18:29 Last Admin: 01/16/17 17:45 Dose: 300 mls/hr Propofol (Diprivan 100 Ml) 100 mls @ 10.35 mls/hr IV TITRATE [facility]IO; 25 MCG/KG/MIN PRN Reason: Protocol Last Admin: 01/17/17 03:51 Dose: 50 mcg/kg/min, 20.7 mls/hr Magnesium Sulfate 2 gm/ Premix 50 mls @ 25 mls/hr IV ASDIRECTED [facility] Stop: 01/17/17 18:28 Last Admin: 01/17/17 16:54 Dose: 25 mls/hr Midazolam HCl (Versed 1 Mg/Ml) 5 mg IVPUSH ONETIME ONE Stop: 01/16/17 15:35 Last Admin: 01/17/17 12:25 Dose: Not Given Midazolam HCl (Versed 1 Mg/Ml) Confirm Administered Dose 6 mg .ROUTE .STK-MED ONE Stop: 01/16/17 15:47 Last Admin: 01/16/17 15:49 Dose: Not Given Morphine Sulfate (Morphine) 2 mg IVPUSH Q2H PRN PRN Reason: Pain (severe 7-10) Stop: 01/17/17 16:19 Naloxone HCl (Narcan) 2 mg IVPUSH ONETIME ONE Stop: 01/16/17 14:03 Last Admin: 01/16/17 14:52 Dose: 2 mg Naloxone HCl (Narcan) Confirm Administered Dose 4 mg .ROUTE .STK-MED ONE Stop: 01/16/17 13:50 Last Admin: 01/17/17 12:25 Dose: Not Given Pantoprazole Sodium (Protonix Iv) 40 mg IVPUSH DAILY [facility] Last Admin: 01/17/17 09:42 Dose: 40 mg Succinylcholine Chloride (Quelicin) 100 mg IV ONETIME ONE Stop: 01/16/17 14:04 Last Admin: 01/16/17 14:52 Dose: 100 mg Succinylcholine Chloride (Quelicin) 200 mg .ROUTE .STK-MED ONE Stop: 01/16/17 22:23 - Exam Quality Assessment: DVT Prophylaxis General: Alert, Oriented, Cooperative, No Acute Distress HEENT: Pupils Equal, Pupils Reactive, EOMI Neck: Supple, Trachea Midline Lungs: Normal Respiratory Effort Cardiovascular: Regular Rate GI/Abdominal Exam: Normal Bowel Sounds, Soft, Non-Tender, No Organomegaly, No Distention (Female) Exam: Deferred Back Exam: Normal Inspection Extremities: Normal Inspection Skin: Warm Neurological: No New Focal Deficit Psy/Mental Status: Alert, Normal Affect, Normal Mood - Problem List Review Problem List Initiated/Reviewed/Updated: Yes - My Orders Last 24 Hours: My Active Orders 01/17/17 12:54 Notify Provider Consults [RC] ASDIRECTED Consult for Substance Abuse [CONS] Routine Consult to Physician [CONS] Routine 01/17/17 12:58 Acetaminophen [Tylenol] 650 mg PO Q6H PRN Ibuprofen [Motrin] 600 mg PO Q8H PRN 01/17/17 13:00 Lisinopril [Prinivil] 5 mg PO BID 01/17/17 16:30 Thiamine [Vitamin B-1] 100 mg PO BEDTIME 01/17/17 17:34 Activity as Tolerated [RC] .Routine 01/17/17 21:00 Potassium Chloride [Klor-Con M20] 40 meq PO BID 01/18/17 09:00 Biotin/FA/Vit C/Vit B Complex [Nephrocaps] 1 tab PO DAILY Pantoprazole [ProTONIX] 40 mg PO DAILY - Plan Plan:: Assessment: 1. Suicidal gesture by multiple drug overdose. 2. Acute respiratory failure requiring intubation and mechanical ventilation; s/ p extubation. 3. Leukocytosis with RUL PNA--->HCAP vs aspiration PNA 3. Alcohol abuse with tendency for withdrawal. Plan: 1. Change to [employer] [facility] on 01/19/17; follow O2 requirements. 2. IV fluid hydration with 0.45% normal saline at 75 mL/h; parameters written 3. Change IV Protonix 40 mg daily to oral formulation. 4. Bronchodilator therapy with albuterol and ipratropium via nebulizer every 4 hours as needed. 5. Levoquin/Zosyn for HCAP. 6. DVT prophylaxis with Lovenox and SCDs. 7. Addiction counseling consult with Haris Doshi and psychiatric evaluation by Dr. Kinney when patient is stable-->completed; DC after infection has been. 8. Social service evaluation for discharge planning. CODE STATUS: Full code.
[2017-01-18] MEDS: Venlafaxine 75 MG Cap.ER PO SCH ×2 (12:36→12:38)
--- NOTE | 2017-01-18 15:25 | CR ---
Chest: 2 views of the chest were obtained. Comparison: Previous chest x-ray dated 1116. Patchy areas of increased density within the right upper lung are seen as an interval change from previous exam. Lungs otherwise are clear. Heart size and mediastinum are normal. Bony structures are unremarkable. Impression: 1. New area of increased density within the right upper chest from prior study. Differential includes aspiration as well as pneumonia. Diagnostic code #3
[2017-01-18] MEDS: Levofloxacin/Dextrose 5%-Water 750 MG in Premix Bag 1 BAG IV SCH (17:29)
[2017-01-18] MEDS ORDERED: Sodium Chloride 0.45% 1,000 ML IV SCH (18:45)
[2017-01-18] MEDS ORDERED: Piperacillin/Tazobactam 4.5 GM in Sodium Chloride 0.9% 100 ML IV ONE (19:00)
[2017-01-18] MEDS: Thiamine 100 MG Tab PO SCH (20:20)
[2017-01-18] MEDS: Ibuprofen 600 MG Tab PO PRN (20:41)
--- NOTE | 2017-01-18 21:47 | CONS ---
CONSULTING PHYSICIAN: Inocencio Kinney MD DATE OF CONSULTATION: 01/18/2017 This is a 60-minute inpatient clinical event. IDENTIFICATION: The patient is a 51-year-old female who is admitted to the [facility] Inpatient MICU on 01/16/2017. She is seen for psychiatric evaluation. CHIEF COMPLAINT: "I swallowed a lot of pills. I was upset. I lost my brother." HISTORY OF PRESENT ILLNESS: The patient is a 51-year-old female admitted to the MICU at [facility] after an overdose in the phase of alcohol intoxication on 01/16/2017. The patient states that she has a history of binge drinking, but had been sober for the past 2-1/2 years and she relapsed just prior to admission and then overdosed on a bunch of pills. She states her brother was killed in an MVA about 3 weeks ago, and she has been pretty upset about that and then she has been having marital problems and is going through a divorce at this point in time and her had been getting her pretty angry. She states that while she stayed sober, "he still drinks" and this is part of the problem. She has a boyfriend now for the past 6 months and has been going through the divorce for about the same period of time. She states her son called 911. She states "I was feeling very depressed." She also notes "I do have some anxiety." She states she was on Effexor XR, but went off that and she states when the Effexor was lowered "I just got very depressed." She is on a combination of Wellbutrin and Cymbalta right now, and she does not feel that this regimen is effective for her. She would like to go back on the Effexor XR to see if this will help her mood. She is denying that she is suicidal or homicidal at this point in time. She denies any psychotic, delusional, or paranoid symptoms. She states she wants to get better, get back on the Effexor XR, and just make sure that she stays sober going forward. She states that she has guns at the house, but knows "I would never use them. I do not want to hurt myself anymore." MEDICATIONS: At the time of presentation: 1. Cymbalta 60 mg q.a.m. 2. Wellbutrin. 3. Lisinopril. 4. Motrin. 5. Prinivil. 6. Thiamine. 7. Flexeril. ALLERGIES: 1. Versed. 2. Lasix. 3. Morphine. 4. Triazolam. 5. Pseudoephedrine. 6. Lactose intolerance. PAST MEDICAL HISTORY: 1. Hypertension. 2. Status post splenectomy. REVIEW OF SYSTEMS: Aside from cardiovascular and GI, all other major organ systems are negative at this point in time for acute difficulties or complications. CHEMICAL DEPENDENCY HISTORY: The patient reports mother and brother had chemical dependency issues. She has a sister who has mental health issues. PAST PSYCHIATRIC AND CD HISTORY: The patient denies any previous psychiatric hospitalizations. Reports 1 chemical dependency treatment in 2014 for alcohol and she has been sober for the past 2-1/2 years after this treatment. Denies any suicide attempts or self- injurious behaviors in the past. PAST PSYCHIATRIC MEDICATION HISTORY: Klonopin. PAST PSYCHIATRIC DIAGNOSIS: Clinical depression. The patient has been seeing by Dr. [facility] for primary psychiatric provider and Raquel Farfan and Dr. Lentz for her primary care needs. SOCIAL HISTORY: The patient was born and raised in [place], [place]. She is the 6th of 6 siblings, having 3 brothers and 2 sisters. The patient's parents were throughout childhood and adolescence. Father was a mastercam programmer. Mother is a homemaker. The patient's highest level of education is 1 year of college and also the patient has a cosmetology degree. The patient has been x2, first marriage was for 1 year, second marriage has been for the past 21 years. She has 1 son who is 20 years of age. Her works in the oil field. 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 She lives in [place] with her family. Denies any prior service or current legal difficulties. She is raised [place]. She enjoys hunting, fishing, painting. Her boyfriend also works in the oil field. MENTAL STATUS EXAM: The patient is a 51-year-old white female, in no apparent distress. Speech is of regular rate and rhythm. The patient is cognitively oriented. Psychomotor activity is within normal limits. There are no abnormal motor movements or tics observed. Gait and station are not observed. This patient is sitting on the side of her bed for the inpatient psychiatric consult. Mood is depressed. Affect is consistent with stated mood of restricted but cooperative overall for the purposes of the inpatient consult. There is no behavioral or stated evidence of acute suicidal or homicidal ideation or acute psychotic, delusional, or paranoid symptoms. Thought processes are organized. There are no manic symptoms or loose associations evident. Judgment and insight appear unimpaired at this point in time. Motivation for help is good. VITAL SIGNS: 136/67, 102, 16, 100 degrees. IMPRESSION: [place] I: 1. Major depressive disorder, recurrent, F33.3. 2. Anxiety disorder, not otherwise specified, F41.9. 3. History of alcohol dependence, episodic. [place] II: None. [place] III: 1. Hypertension. 2. Status post splenectomy. [place] IV: Severe. [place] V: 60. PLAN: 1. Sobriety. 2. Discontinue Wellbutrin. 3. Discontinue Cymbalta. 4. Increase the patient's Effexor XR from 75 up to 150 mg q.a.m. 5. AA rep to visit the patient while she remains on inpatient unit. 6. Pastoral guidance. 7. Discontinue one-to-one. 8. May discharge the patient back to community when medically stable. 9. Recommended the patient to follow up with Outpatient Psychiatry in 2 to 4 weeks once discharged back community to assess overall function efficacy of her newly adjusted and initiated psychiatric medication regimen. 10.We will continue to follow up with the patient on an as-needed basis while she remains on the inpatient medical unit. 11.We will follow up with the patient sooner if any complications in the interim. 12.Crisis plan is in place. MMODAL /[id number] AKIRA
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
[2017-01-19] MEDS: Piperacillin/Tazobactam 4.5 GM in Sodium Chloride 0.9% 100 ML IV SCH ×3 (03:15→20:24)
[2017-01-19] MEDS: Pantoprazole 40 MG Tab.CR PO SCH (09:03)
[2017-01-19] MEDS: Potassium Chloride 20 MEQ Tab.ER PO SCH (09:03)
[2017-01-19] MEDS: Venlafaxine 75 MG Cap.ER PO SCH (09:04)
[2017-01-19] MEDS: Enoxaparin 40 MG/0.4 ML Syringe SUBCUT SCH (09:04)
[2017-01-19] MEDS: Biotin/Folic Acid/Vitamin C/Vitamin B Complex Tab PO SCH (09:05)
[2017-01-19] MEDS: Lisinopril 5 MG Tab PO SCH ×2 (09:05→20:16)
[2017-01-19] MEDS ORDERED: Magnesium Sulfate/Water 2 GM in Premix Bag 1 BAG IV ONE (09:47)
[2017-01-19] MEDS: Sodium Chloride 0.45% 1,000 ML IV SCH (11:44)
[2017-01-19] MEDS: Benzonatate 100 MG Cap PO PRN ×2 (11:44→20:14)
--- NOTE | 2017-01-19 15:19 | PCM.PN ---
- General Info Date of Service: 01/19/17 Functional Status: Reports: Pain Controlled, Tolerating Diet - Review of Systems General: Reports: Weakness, Malaise HEENT: Reports: No Symptoms Pulmonary: Reports: No Symptoms Cardiovascular: Reports: No Symptoms Gastrointestinal: Reports: No Symptoms Genitourinary: Reports: No Symptoms Musculoskeletal: Reports: No Symptoms Skin: Reports: No Symptoms Neurological: Reports: No Symptoms Psychiatric: Reports: No Symptoms - Patient Data Vitals - Most Recent: Last Vital Signs Temp 38.1 C 01/19/17 11:47 Pulse 111 H 01/18/17 16:00 Resp 15 01/19/17 11:47 BP 117/76 01/19/17 11:47 Pulse Ox 98 01/19/17 11:47 Weight - Most Recent: 72.167 kg I&O - Last 24 Hours: Intake & Output 01/19/17 01/19/17 01/19/17 06:59 14:59 22:59 Intake Total 600 800 Output Total 500 1000 Balance 100 -200 Lab Results Last 24 Hours: Laboratory Results - last 24 hr 01/18/17 01/19/17 01/19/17 Range/Units 14:45 09:36 09:36 WBC 17.35 H (3.98-10.04) K/mm3 RBC 3.92 L (3.98-5.22) M/mm3 Hgb 11.6 (11.2-15.7) gm/L Hct 35.5 (34.1-44.9) % MCV 90.6 (79.4-94.8) fl MCH 29.6 (25.6-32.2) pg MCHC 32.7 (32.2-35.5) g/dl RDW Std Deviation 43.5 (36.4-46.3) fL Plt Count 167 L (182-369) K/mm3 MPV 9.2 L (9.4-12.3) fl Neut % (Auto) 85.3 H (34.0-71.1) % Lymph % (Auto) 6.1 L (19.3-51.7) % Roosevelt % (Auto) 6.2 (4.7-12.5) % Eos % (Auto) 1.6 (0.7-5.8) Baso % (Auto) 0.3 (0.1-1.2) % Neut # (Auto) 14.81 H (1.56-6.13) K/mm3 Lymph # (Auto) 1.05 L (1.18-3.74) K/mm3 Roosevelt # (Auto) 1.08 H (0.24-0.36) K/mm3 Eos # (Auto) 0.27 (0.04-0.36) K/mm3 Baso # (Auto) 0.05 (0.01-0.08) K/mm3 Manual Slide Review Abnormal smear Sodium 139 (136-145) mEq/L Potassium 3.9 (3.5-5.1) mEq/L Chloride 105 (98-107) mEq/L Carbon Dioxide 25 (21-32) mEq/L Anion Gap 12.9 (5-15) BUN 8 (7-18) mg/dL Creatinine 0.8 (0.55-1.02) mg/dL Est Cr Clr Drug Dosing 79.08 mL/min Estimated GFR (MDRD) > 60 (>60) mL/min BUN/Creatinine Ratio 10.0 L (14-18) Glucose 122 H (74-106) mg/dL Calcium 8.7 (8.5-10.1) mg/dL Magnesium 1.7 L (1.8-2.4) mg/dl Urine RBC Not seen (0-5) /hpf Urine WBC 0-5 (0-5) /hpf Ur Epithelial Cells 5-10 H (0-5) /hpf Urine Bacteria Rare (FEW) /hpf Urine Mucus Few (FEW) /hpf Med Orders - Current: Current Medications Acetaminophen (Tylenol) 650 mg PO Q6H PRN PRN Reason: Headache/Pain Last Admin: 01/18/17 16:45 Dose: 650 mg Albuterol/Ipratropium (Duoneb 3.0-0.5 Mg/3 Ml) 3 ml NEB Q4H PRN PRN Reason: Shortness Of Breath/wheezing Benzonatate (Tessalon Perles) 200 mg PO TID PRN PRN Reason: Cough Last Admin: 01/19/17 11:44 Dose: 200 mg Enoxaparin Sodium (Lovenox) 40 mg SUBCUT DAILY [facility] Last Admin: 01/19/17 09:04 Dose: 40 mg Hydralazine HCl (Apresoline) 10 mg IVPUSH Q2H PRN PRN Reason: Hypertension Levofloxacin/Dextrose 750 mg/ (Premix) 150 mls @ 100 mls/hr IV Q24H [facility] Last Admin: 01/18/17 17:29 Dose: 100 mls/hr Piperacillin Sod/Tazobactam (Sod 4.5 gm/ Sodium Chloride) 100 mls @ 25 mls/hr IV Q8H [facility] Last Admin: 01/19/17 11:07 Dose: 25 mls/hr Sodium Chloride (Sodium Chloride 0.45%) 1,000 mls @ 50 mls/hr IV ASDIRECTED [facility] Last Admin: 01/19/17 11:44 Dose: 50 mls/hr Ibuprofen (Motrin) 600 mg PO Q8H PRN PRN Reason: Headache/Pain Last Admin: 01/18/17 20:41 Dose: 600 mg Lisinopril (Prinivil) 5 mg PO BID [facility] Last Admin: 01/19/17 09:05 Dose: Not Given Ondansetron HCl (Zofran) 4 mg IV Q6H PRN PRN Reason: Nausea/Vomiting Pantoprazole Sodium (Protonix) 40 mg PO DAILY [facility] Last Admin: 01/19/17 09:03 Dose: 40 mg Sodium Chloride (Saline Flush) 10 ml FLUSH ASDIRECTED PRN PRN Reason: Keep Vein Open Last Admin: 01/16/17 14:52 Dose: 10 ml Thiamine HCl (Vitamin B-1) 100 mg PO BEDTIME [facility] Last Admin: 01/18/17 20:20 Dose: 100 mg Venlafaxine HCl (Effexor Xr) 150 mg PO DAILY [facility] Vitamin B Complex/Vit C/Folic Acid (Nephrocaps) 1 tab PO DAILY [facility] Last Admin: 01/19/17 09:05 Dose: 1 tab Discontinued Medications Etomidate (Amidate) 20 mg IVPUSH ONETIME ONE Stop: 01/16/17 14:04 Last Admin: 01/16/17 14:52 Dose: 20 mg Etomidate (Amidate) 40 mg IVPUSH .STK-MED ONE Stop: 01/16/17 22:23 Sodium Chloride (Normal Saline) 1,000 mls @ 125 mls/hr IV ASDIRECTED [facility] Last Admin: 01/17/17 11:12 Dose: 125 mls/hr Propofol (Diprivan 100 Ml) 100 mls @ 1.89 mls/hr IV TITRATE [facility]IO; 5 MCG/KG/MIN PRN Reason: Protocol Last Titration: 01/16/17 21:41 Dose: 25 mcg/kg/min, 9.45 mls/hr Acetylcysteine 10,000 mg/ (Dextrose/Water) 300 mls @ 300 mls/hr IV ASDIRECTED [facility] Stop: 01/16/17 18:29 Last Admin: 01/16/17 17:45 Dose: 300 mls/hr Propofol (Diprivan 100 Ml) 100 mls @ 10.35 mls/hr IV TITRATE [facility]; 25 MCG/KG/MIN PRN Reason: Protocol Last Admin: 01/17/17 03:51 Dose: 50 mcg/kg/min, 20.7 mls/hr Magnesium Sulfate 2 gm/ Premix 50 mls @ 25 mls/hr IV ASDIRECTED [facility] Stop: 01/17/17 18:28 Last Admin: 01/17/17 16:54 Dose: 25 mls/hr Sodium Chloride (Sodium Chloride 0.45%) 1,000 mls @ 75 mls/hr IV ASDIRECTED [facility] Stop: 01/19/17 03:00 Last Infusion: 01/19/17 03:40 Dose: 50 mls/hr Piperacillin Sod/Tazobactam (Sod 4.5 gm/ Sodium Chloride) 100 mls @ 200 mls/hr IV ONETIME ONE Stop: 01/18/17 19:29 Last Admin: 01/18/17 19:30 Dose: 200 mls/hr Magnesium Sulfate 2 gm/ Premix 50 mls @ 25 mls/hr IV ONETIME ONE Stop: 01/19/17 11:46 Last Admin: 01/19/17 11:07 Dose: 25 mls/hr Midazolam HCl (Versed 1 Mg/Ml) 5 mg IVPUSH ONETIME ONE Stop: 01/16/17 15:35 Last Admin: 01/17/17 12:25 Dose: Not Given Midazolam HCl (Versed 1 Mg/Ml) Confirm Administered Dose 6 mg .ROUTE .STK-MED ONE Stop: 01/16/17 15:47 Last Admin: 01/16/17 15:49 Dose: Not Given Morphine Sulfate (Morphine) 2 mg IVPUSH Q2H PRN PRN Reason: Pain (severe 7-10) Stop: 01/17/17 16:19 Naloxone HCl (Narcan) 2 mg IVPUSH ONETIME ONE Stop: 01/16/17 14:03 Last Admin: 01/16/17 14:52 Dose: 2 mg Naloxone HCl (Narcan) Confirm Administered Dose 4 mg .ROUTE .STK-MED ONE Stop: 01/16/17 13:50 Last Admin: 01/17/17 12:25 Dose: Not Given Pantoprazole Sodium (Protonix Iv) 40 mg IVPUSH DAILY [facility] Last Admin: 01/17/17 09:42 Dose: 40 mg Potassium Chloride (Klor-Con M20) 40 meq PO BID [facility] Stop: 01/19/17 09:01 Last Admin: 01/19/17 09:03 Dose: 40 meq Succinylcholine Chloride (Quelicin) 100 mg IV ONETIME ONE Stop: 01/16/17 14:04 Last Admin: 01/16/17 14:52 Dose: 100 mg Succinylcholine Chloride (Quelicin) 200 mg .ROUTE .STK-MED ONE Stop: 01/16/17 22:23 Venlafaxine HCl (Effexor Xr) 75 mg PO DAILY [facility] Stop: 01/19/17 09:01 Last Admin: 01/19/17 09:04 Dose: 75 mg - Exam Quality Assessment: Supplemental Oxygen, DVT Prophylaxis General: Alert, Oriented, Cooperative, No Acute Distress HEENT: Pupils Equal, Pupils Reactive, EOMI Neck: Supple, Trachea Midline, No JVD Lungs: Decreased Breath Sounds, Crackles, Wheezing Cardiovascular: Regular Rate, Regular Rhythm GI/Abdominal Exam: Normal Bowel Sounds, Soft, Non-Tender, No Organomegaly, No Distention (Female) Exam: Deferred Back Exam: Normal Inspection Extremities: Normal Inspection, No Pedal Edema Skin: Warm, Dry, Intact Neurological: No New Focal Deficit Psy/Mental Status: Alert, Normal Affect, Normal Mood - Problem List Review Problem List Initiated/Reviewed/Updated: Yes - My Orders Last 24 Hours: My Active Orders 01/18/17 16:00 One To One Therapy [BH] Routine 01/18/17 17:00 Blood Culture x2 Reflex Set [OM.PC] Stat 01/18/17 17:15 CULTURE BLOOD [BC] Stat 01/18/17 18:00 Levofloxacin/Dextrose 5%-Water [Levaquin in D5W 750 MG/150 ML] 750 mg Premix Bag 1 bag IV Q24H 01/19/17 03:00 Piperacillin/Tazobactam [Zosyn] 4.5 gm Sodium Chloride 0.9% [Normal Saline] 100 ml IV Q8H Sodium Chloride 0.45% 1,000 ml IV ASDIRECTED 01/19/17 09:32 Patient Status [ADT] Routine 01/19/17 09:40 IS (RT) [RT Incentive Spirometry] [RC] ASDIRECTED 01/19/17 09:41 Benzonatate [Tessalon Perles] 200 mg PO TID PRN - Plan Plan:: Assessment: 1. Suicidal gesture by multiple drug overdose. 2. Acute respiratory failure requiring intubation and mechanical ventilation; s/ p extubation. 3. Leukocytosis with RUL PNA--->HCAP vs aspiration PNA 3. Alcohol abuse with tendency for withdrawal. Plan: 1. Change to [employer] on 01/19/17; follow O2 requirements. 2. IV fluid hydration with 0.45% normal saline at 75 mL/h; parameters written 3. Change IV Protonix 40 mg daily to oral formulation. 4. Bronchodilator therapy with albuterol and ipratropium via nebulizer every 4 hours as needed. 5. Levoquin/Zosyn for HCAP. 6. DVT prophylaxis with Lovenox and SCDs. 7. Addiction counseling consult with Haris Doshi and psychiatric evaluation by Dr. Kinney when patient is stable-->completed; DC after infection has been. 8. Social service evaluation for discharge planning. !!!LOS>96 hours, stay has been extended with needed Tx for PNA. CODE STATUS: Full code.
[2017-01-19] MEDS: Acetaminophen 325 MG Tab PO PRN ×2 (16:27→23:15)
[2017-01-19] MEDS: Levofloxacin/Dextrose 5%-Water 750 MG in Premix Bag 1 BAG IV SCH (17:39)
[2017-01-19] MEDS: Thiamine 100 MG Tab PO SCH (20:14)
[2017-01-20] MEDS: Piperacillin/Tazobactam 4.5 GM in Sodium Chloride 0.9% 100 ML IV SCH ×3 (04:25→20:00)
[2017-01-20] MEDS: Sodium Chloride 0.45% 1,000 ML IV SCH (07:32)
[2017-01-20] MEDS: Pantoprazole 40 MG Tab.CR PO SCH (09:28)
[2017-01-20] MEDS: Enoxaparin 40 MG/0.4 ML Syringe SUBCUT SCH (09:28)
[2017-01-20] MEDS: Venlafaxine 75 MG Cap.ER PO SCH (09:28)
[2017-01-20] MEDS: Lisinopril 5 MG Tab PO SCH ×2 (09:29→20:22)
[2017-01-20] MEDS: Biotin/Folic Acid/Vitamin C/Vitamin B Complex Tab PO SCH (09:30)
[2017-01-20] MEDS: Acetaminophen 325 MG Tab PO PRN ×2 (09:48→21:41)
[2017-01-20] MEDS: Benzonatate 100 MG Cap PO PRN ×2 (09:48→20:19)
[2017-01-20] MEDS ORDERED: ClonazePAM 0.5 MG Tab PO PRN (13:47)
[2017-01-20] MEDS ORDERED: Cyclobenzaprine 10 MG Tab PO PRN (13:47)
--- NOTE | 2017-01-20 13:47 | PCM.PN ---
- General Info Date of Service: 01/20/17 Functional Status: Reports: Tolerating Diet - Review of Systems General: Reports: Weakness, Malaise HEENT: Reports: No Symptoms Pulmonary: Reports: No Symptoms Cardiovascular: Reports: No Symptoms Gastrointestinal: Reports: No Symptoms Genitourinary: Reports: No Symptoms Musculoskeletal: Reports: No Symptoms Skin: Reports: No Symptoms Neurological: Reports: No Symptoms Psychiatric: Reports: No Symptoms - Patient Data Vitals - Most Recent: Last Vital Signs Temp 38.0 C 01/20/17 09:00 Pulse 111 H 01/18/17 16:00 Resp 17 01/20/17 09:00 BP 116/72 01/20/17 09:29 Pulse Ox 91 L 01/20/17 03:00 Weight - Most Recent: 72.263 kg I&O - Last 24 Hours: Intake & Output 01/19/17 01/20/17 01/20/17 22:59 06:59 14:59 Intake Total 934 850 100 Output Total 500 250 Balance 434 850 -150 Miguel Angel Results Last 24 Hours: Microbiology 01/18/17 17:15 Aerobic Blood Culture - Preliminary Blood - Venous NO GROWTH AFTER 1 DAY Anaerobic Blood Culture - Preliminary NO GROWTH AFTER 1 DAY Med Orders - Current: Current Medications Acetaminophen (Tylenol) 650 mg PO Q6H PRN PRN Reason: Headache/Pain Last Admin: 01/20/17 09:48 Dose: 650 mg Albuterol/Ipratropium (Duoneb 3.0-0.5 Mg/3 Ml) 3 ml NEB Q4H PRN PRN Reason: Shortness Of Breath/wheezing Benzonatate (Tessalon Perles) 200 mg PO TID PRN PRN Reason: Cough Last Admin: 01/20/17 09:48 Dose: 200 mg Enoxaparin Sodium (Lovenox) 40 mg SUBCUT DAILY [facility] Last Admin: 01/20/17 09:28 Dose: 40 mg Hydralazine HCl (Apresoline) 10 mg IVPUSH Q2H PRN PRN Reason: Hypertension Levofloxacin/Dextrose 750 mg/ (Premix) 150 mls @ 100 mls/hr IV Q24H [facility] Last Admin: 01/19/17 17:39 Dose: 100 mls/hr Piperacillin Sod/Tazobactam (Sod 4.5 gm/ Sodium Chloride) 100 mls @ 25 mls/hr IV Q8H [facility] Last Admin: 01/20/17 11:32 Dose: 25 mls/hr Sodium Chloride (Sodium Chloride 0.45%) 1,000 mls @ 50 mls/hr IV ASDIRECTED [facility] Last Admin: 01/20/17 07:32 Dose: 50 mls/hr Ibuprofen (Motrin) 600 mg PO Q8H PRN PRN Reason: Headache/Pain Last Admin: 01/18/17 20:41 Dose: 600 mg Lisinopril (Prinivil) 5 mg PO BID [facility] Last Admin: 01/20/17 09:29 Dose: Not Given Ondansetron HCl (Zofran) 4 mg IV Q6H PRN PRN Reason: Nausea/Vomiting Pantoprazole Sodium (Protonix) 40 mg PO DAILY [facility] Last Admin: 01/20/17 09:28 Dose: 40 mg Sodium Chloride (Saline Flush) 10 ml FLUSH ASDIRECTED PRN PRN Reason: Keep Vein Open Last Admin: 01/16/17 14:52 Dose: 10 ml Thiamine HCl (Vitamin B-1) 100 mg PO BEDTIME [facility] Last Admin: 01/19/17 20:14 Dose: 100 mg Venlafaxine HCl (Effexor Xr) 150 mg PO DAILY [facility] Last Admin: 01/20/17 09:28 Dose: 150 mg Vitamin B Complex/Vit C/Folic Acid (Nephrocaps) 1 tab PO DAILY [facility] Last Admin: 01/20/17 09:30 Dose: 1 tab Discontinued Medications Etomidate (Amidate) 20 mg IVPUSH ONETIME ONE Stop: 01/16/17 14:04 Last Admin: 01/16/17 14:52 Dose: 20 mg Etomidate (Amidate) 40 mg IVPUSH .STK-MED ONE Stop: 01/16/17 22:23 Sodium Chloride (Normal Saline) 1,000 mls @ 125 mls/hr IV ASDIRECTED [facility] Last Admin: 01/17/17 11:12 Dose: 125 mls/hr Propofol (Diprivan 100 Ml) 100 mls @ 1.89 mls/hr IV TITRATE [facility]; 5 MCG/KG/MIN PRN Reason: Protocol Last Titration: 01/16/17 21:41 Dose: 25 mcg/kg/min, 9.45 mls/hr Acetylcysteine 10,000 mg/ (Dextrose/Water) 300 mls @ 300 mls/hr IV ASDIRECTED [facility] Stop: 01/16/17 18:29 Last Admin: 01/16/17 17:45 Dose: 300 mls/hr Propofol (Diprivan 100 Ml) 100 mls @ 10.35 mls/hr IV TITRATE [facility]; 25 MCG/KG/MIN PRN Reason: Protocol Last Admin: 01/17/17 03:51 Dose: 50 mcg/kg/min, 20.7 mls/hr Magnesium Sulfate 2 gm/ Premix 50 mls @ 25 mls/hr IV ASDIRECTED [facility] Stop: 01/17/17 18:28 Last Admin: 01/17/17 16:54 Dose: 25 mls/hr Sodium Chloride (Sodium Chloride 0.45%) 1,000 mls @ 75 mls/hr IV ASDIRECTED [facility] Stop: 01/19/17 03:00 Last Infusion: 01/19/17 03:40 Dose: 50 mls/hr Piperacillin Sod/Tazobactam (Sod 4.5 gm/ Sodium Chloride) 100 mls @ 200 mls/hr IV ONETIME ONE Stop: 01/18/17 19:29 Last Admin: 01/18/17 19:30 Dose: 200 mls/hr Magnesium Sulfate 2 gm/ Premix 50 mls @ 25 mls/hr IV ONETIME ONE Stop: 01/19/17 11:46 Last Admin: 01/19/17 11:07 Dose: 25 mls/hr Midazolam HCl (Versed 1 Mg/Ml) 5 mg IVPUSH ONETIME ONE Stop: 01/16/17 15:35 Last Admin: 01/17/17 12:25 Dose: Not Given Midazolam HCl (Versed 1 Mg/Ml) Confirm Administered Dose 6 mg .ROUTE .STK-MED ONE Stop: 01/16/17 15:47 Last Admin: 01/16/17 15:49 Dose: Not Given Morphine Sulfate (Morphine) 2 mg IVPUSH Q2H PRN PRN Reason: Pain (severe 7-10) Stop: 01/17/17 16:19 Naloxone HCl (Narcan) 2 mg IVPUSH ONETIME ONE Stop: 01/16/17 14:03 Last Admin: 01/16/17 14:52 Dose: 2 mg Naloxone HCl (Narcan) Confirm Administered Dose 4 mg .ROUTE .STK-MED ONE Stop: 01/16/17 13:50 Last Admin: 01/17/17 12:25 Dose: Not Given Pantoprazole Sodium (Protonix Iv) 40 mg IVPUSH DAILY [facility] Last Admin: 01/17/17 09:42 Dose: 40 mg Potassium Chloride (Klor-Con M20) 40 meq PO BID [facility] Stop: 01/19/17 09:01 Last Admin: 01/19/17 09:03 Dose: 40 meq Succinylcholine Chloride (Quelicin) 100 mg IV ONETIME ONE Stop: 01/16/17 14:04 Last Admin: 01/16/17 14:52 Dose: 100 mg Succinylcholine Chloride (Quelicin) 200 mg .ROUTE .STK-MED ONE Stop: 01/16/17 22:23 Venlafaxine HCl (Effexor Xr) 75 mg PO DAILY [facility] Stop: 01/19/17 09:01 Last Admin: 01/19/17 09:04 Dose: 75 mg - Exam Quality Assessment: Supplemental Oxygen, DVT Prophylaxis General: Alert, Oriented, Cooperative, No Acute Distress HEENT: Pupils Equal, Pupils Reactive, EOMI Neck: Supple, Trachea Midline, No JVD Lungs: Normal Respiratory Effort, Decreased Breath Sounds (R>L) Cardiovascular: Regular Rate, Regular Rhythm GI/Abdominal Exam: Normal Bowel Sounds, Soft, Non-Tender, No Organomegaly, No Distention (Female) Exam: Deferred Back Exam: Normal Inspection Extremities: Normal Inspection, Normal Range of Motion Skin: Warm Neurological: No New Focal Deficit, Normal Speech Psy/Mental Status: Alert, Normal Affect, Normal Mood - Problem List Review Problem List Initiated/Reviewed/Updated: Yes - My Orders Last 24 Hours: My Active Orders 01/20/17 14:00 BASIC METABOLIC PANEL,BMP [CHEM] Routine CBC WITH AUTO DIFF [HEME] Routine MAGNESIUM [CHEM] Routine - Plan Plan:: Assessment: 1. Suicidal gesture by multiple drug overdose. 2. Acute respiratory failure requiring intubation and mechanical ventilation; s/ p extubation. 3. Leukocytosis with RUL PNA--->HCAP vs aspiration PNA 3. Alcohol abuse with tendency for withdrawal. Plan: 1. Follow O2 requirements. 2. IV fluid hydration with 0.45% normal saline at 75 mL/h; parameters written 3. Bronchodilator therapy with albuterol and ipratropium via nebulizer every 4 hours as needed. 4. Levoquin/Zosyn for HCAP. 5. DVT prophylaxis with Lovenox and SCDs. 6. Addiction counseling consult with Haris Doshi and psychiatric evaluation by Dr. Kinney when patient is stable-->completed; DC after infection has been. 8. Social service evaluation for discharge planning. LOS>96 hours, stay has been extended with needed Tx for PNA. CODE STATUS: Full code.
[2017-01-20] MEDS: Codeine/Promethazine 10-6.25 MG/5 ML Syrup 5 ML UD Cup PO SCH ×2 (17:27→23:19)
[2017-01-20] MEDS: Levofloxacin/Dextrose 5%-Water 750 MG in Premix Bag 1 BAG IV SCH (17:27)
[2017-01-20] MEDS: Thiamine 100 MG Tab PO SCH (20:20)
[2017-01-21] MEDS: Piperacillin/Tazobactam 4.5 GM in Sodium Chloride 0.9% 100 ML IV SCH ×3 (03:27→19:43)
[2017-01-21] MEDS: Sodium Chloride 0.45% 1,000 ML IV SCH (03:37)
[2017-01-21] MEDS: Codeine/Promethazine 10-6.25 MG/5 ML Syrup 5 ML UD Cup PO SCH ×5 (06:57→23:10)
[2017-01-21] MEDS: Saccharomyces Boulardii (Probiotic) 250 MG Cap PO SCH (08:36)
[2017-01-21] MEDS: Vitamin B Complex With Vitamin C Cap PO SCH (08:37)
[2017-01-21] MEDS: Pantoprazole 40 MG Tab.CR PO SCH (08:37)
[2017-01-21] MEDS: Venlafaxine 75 MG Cap.ER PO SCH (08:37)
[2017-01-21] MEDS: Enoxaparin 40 MG/0.4 ML Syringe SUBCUT SCH (08:38)
[2017-01-21] MEDS: Biotin/Folic Acid/Vitamin C/Vitamin B Complex Tab PO SCH (08:42)
[2017-01-21] MEDS: Lisinopril 5 MG Tab PO SCH ×2 (08:42→20:43)
[2017-01-21] MEDS ORDERED: Fluconazole 150 MG Tab PO ONE (09:00)
[2017-01-21] MEDS ORDERED: buPROPion 150 MG Tab.ER PO SCH (09:00)
--- NOTE | 2017-01-21 11:28 | CR ---
Chest: 2 views of the chest were obtained. Comparison: Previous chest x-ray 01/18/17. Marked worsening is seen of parenchymal densities within both lungs, more prominent on the right side than on the left side. Heart size and mediastinum are normal. Bony structures are unremarkable. Impression: 1. Worsening parenchymal densities on both sides of the chest from prior chest x-ray. Findings presumably are due to worsening pneumonia. Please correlate if this matches patient's clinical symptoms. Diagnostic code #5
--- NOTE | 2017-01-21 11:35 | PCM.PN ---
- General Info Date of Service: 01/21/17 Subjective Update: Feels less generalized weakness, malaise--slowly getting stronger. Functional Status: Reports: Tolerating Diet, Ambulating, Urinating - Review of Systems General: Reports: Weakness HEENT: Reports: No Symptoms Pulmonary: Reports: No Symptoms Cardiovascular: Reports: No Symptoms Gastrointestinal: Reports: No Symptoms Genitourinary: Reports: No Symptoms Musculoskeletal: Reports: No Symptoms Skin: Reports: No Symptoms Neurological: Reports: No Symptoms Psychiatric: Reports: No Symptoms - Patient Data Vitals - Most Recent: Last Vital Signs Temp 37.0 C 01/21/17 08:34 Pulse 90 01/20/17 20:27 Resp 16 01/21/17 08:34 BP 95/58 L 01/21/17 08:42 Pulse Ox 97 01/21/17 08:34 Weight - Most Recent: 71.894 kg I&O - Last 24 Hours: Intake & Output 01/20/17 01/21/17 01/21/17 22:59 06:59 14:59 Intake Total 1445 1380 Output Total 900 800 Balance 545 580 Lab Results Last 24 Hours: Laboratory Results - last 24 hr 01/20/17 01/20/17 01/21/17 Range/Units 14:05 14:05 11:05 WBC 14.91 H 10.57 H (3.98-10.04) K/mm3 RBC 3.59 L 3.67 L (3.98-5.22) M/mm3 Hgb 10.7 L 10.9 L (11.2-15.7) gm/L Hct 32.0 L 32.9 L (34.1-44.9) % MCV 89.1 89.6 (79.4-94.8) fl MCH 29.8 29.7 (25.6-32.2) pg MCHC 33.4 33.1 (32.2-35.5) g/dl RDW Std Deviation 42.5 43.3 (36.4-46.3) fL Plt Count 227 237 (182-369) K/mm3 MPV 9.4 9.2 L (9.4-12.3) fl Neut % (Auto) 76.9 H 61.1 (34.0-71.1) % Lymph % (Auto) 11.3 L 18.4 L (19.3-51.7) % Esmeralda % (Auto) 7.2 11.8 (4.7-12.5) % Eos % (Auto) 4.0 7.9 H (0.7-5.8) Baso % (Auto) 0.3 0.5 (0.1-1.2) % Neut # (Auto) 11.47 H 6.47 H (1.56-6.13) K/mm3 Lymph # (Auto) 1.68 1.94 (1.18-3.74) K/mm3 Esmeralda # (Auto) 1.08 H 1.25 H (0.24-0.36) K/mm3 Eos # (Auto) 0.59 H 0.83 H (0.04-0.36) K/mm3 Baso # (Auto) 0.04 0.05 (0.01-0.08) K/mm3 Sodium 141 (136-145) mEq/L Potassium 3.7 (3.5-5.1) mEq/L Chloride 107 (98-107) mEq/L Carbon Dioxide 25 (21-32) mEq/L Anion Gap 12.7 (5-15) BUN 8 (7-18) mg/dL Creatinine 0.9 (0.55-1.02) mg/dL Est Cr Clr Drug Dosing TNP Estimated GFR (MDRD) > 60 (>60) mL/min BUN/Creatinine Ratio 8.9 L (14-18) Glucose 115 H (74-106) mg/dL Calcium 8.1 L (8.5-10.1) mg/dL Magnesium 1.9 (1.8-2.4) mg/dl Miguel Angel Results Last 24 Hours: Microbiology 01/18/17 17:15 Aerobic Blood Culture - Preliminary Blood - Venous NO GROWTH AFTER 2 DAYS Anaerobic Blood Culture - Preliminary NO GROWTH AFTER 2 DAYS Med Orders - Current: Current Medications Acetaminophen (Tylenol) 650 mg PO Q6H PRN PRN Reason: Headache/Pain Last Admin: 01/20/17 21:41 Dose: 650 mg Albuterol/Ipratropium (Duoneb 3.0-0.5 Mg/3 Ml) 3 ml NEB Q4H PRN PRN Reason: Shortness Of Breath/wheezing Benzonatate (Tessalon Perles) 200 mg PO TID PRN PRN Reason: Cough Last Admin: 01/20/17 20:19 Dose: 200 mg Clonazepam (Klonopin) 0.5 mg PO BEDTIME PRN PRN Reason: Sleep Last Admin: 01/20/17 21:41 Dose: 0.5 mg Enoxaparin Sodium (Lovenox) 40 mg SUBCUT DAILY [facility] Last Admin: 01/21/17 08:38 Dose: 40 mg Hydralazine HCl (Apresoline) 10 mg IVPUSH Q2H PRN PRN Reason: Hypertension Levofloxacin/Dextrose 750 mg/ (Premix) 150 mls @ 100 mls/hr IV Q24H [facility] Last Admin: 01/20/17 17:27 Dose: 100 mls/hr Piperacillin Sod/Tazobactam (Sod 4.5 gm/ Sodium Chloride) 100 mls @ 25 mls/hr IV Q8H [facility] Last Admin: 01/21/17 03:27 Dose: 25 mls/hr Sodium Chloride (Sodium Chloride 0.45%) 1,000 mls @ 50 mls/hr IV ASDIRECTED [facility] Last Admin: 01/21/17 03:37 Dose: 50 mls/hr Ibuprofen (Motrin) 600 mg PO Q8H PRN PRN Reason: Headache/Pain Last Admin: 01/18/17 20:41 Dose: 600 mg Lisinopril (Prinivil) 5 mg PO BID [facility] Last Admin: 01/21/17 08:42 Dose: Not Given Ondansetron HCl (Zofran) 4 mg IV Q6H PRN PRN Reason: Nausea/Vomiting Pantoprazole Sodium (Protonix) 40 mg PO DAILY [facility] Last Admin: 01/21/17 08:37 Dose: 40 mg Promethazine HCl/Codeine (Phenergan With Codeine) 10 ml PO Q6HR [facility] Last Admin: 01/21/17 07:02 Dose: 10 ml Saccharomyces Boulardii (Florastor) 250 mg PO DAILY [facility] Last Admin: 01/21/17 08:36 Dose: 250 mg Sodium Chloride (Saline Flush) 10 ml FLUSH ASDIRECTED PRN PRN Reason: Keep Vein Open Last Admin: 01/16/17 14:52 Dose: 10 ml Thiamine HCl (Vitamin B-1) 100 mg PO BEDTIME [facility] Last Admin: 01/20/17 20:20 Dose: 100 mg Venlafaxine HCl (Effexor Xr) 150 mg PO DAILY [facility] Last Admin: 01/21/17 08:37 Dose: 150 mg Vitamin B Complex/Vit C/Folic Acid (Nephrocaps) 1 tab PO DAILY [facility] Last Admin: 01/21/17 08:42 Dose: 1 tab Vitamin B Complex/Vitamin C (Super B With Vitamin C) 2 cap PO DAILY [facility] Last Admin: 01/21/17 08:37 Dose: 2 cap Discontinued Medications Bupropion HCl (Wellbutrin Xl) 150 mg PO DAILY [facility] Cyclobenzaprine HCl (Flexeril) 10 mg PO BID PRN PRN Reason: Pain Etomidate (Amidate) 20 mg IVPUSH ONETIME ONE Stop: 01/16/17 14:04 Last Admin: 01/16/17 14:52 Dose: 20 mg Etomidate (Amidate) 40 mg IVPUSH .STK-MED ONE Stop: 01/16/17 22:23 Fluconazole (Diflucan) 150 mg PO ONETIME ONE Stop: 01/21/17 09:01 Last Admin: 01/21/17 08:36 Dose: 150 mg Sodium Chloride (Normal Saline) 1,000 mls @ 125 mls/hr IV ASDIRECTED [facility] Last Admin: 01/17/17 11:12 Dose: 125 mls/hr Propofol (Diprivan 100 Ml) 100 mls @ 1.89 mls/hr IV TITRATE [facility]; 5 MCG/KG/MIN PRN Reason: Protocol Last Titration: 01/16/17 21:41 Dose: 25 mcg/kg/min, 9.45 mls/hr Acetylcysteine 10,000 mg/ (Dextrose/Water) 300 mls @ 300 mls/hr IV ASDIRECTED [facility] Stop: 01/16/17 18:29 Last Admin: 01/16/17 17:45 Dose: 300 mls/hr Propofol (Diprivan 100 Ml) 100 mls @ 10.35 mls/hr IV TITRATE [facility]; 25 MCG/KG/MIN PRN Reason: Protocol Last Admin: 01/17/17 03:51 Dose: 50 mcg/kg/min, 20.7 mls/hr Magnesium Sulfate 2 gm/ Premix 50 mls @ 25 mls/hr IV ASDIRECTED [facility] Stop: 01/17/17 18:28 Last Admin: 01/17/17 16:54 Dose: 25 mls/hr Sodium Chloride (Sodium Chloride 0.45%) 1,000 mls @ 75 mls/hr IV ASDIRECTED [facility] Stop: 01/19/17 03:00 Last Infusion: 01/19/17 03:40 Dose: 50 mls/hr Piperacillin Sod/Tazobactam (Sod 4.5 gm/ Sodium Chloride) 100 mls @ 200 mls/hr IV ONETIME ONE Stop: 01/18/17 19:29 Last Admin: 01/18/17 19:30 Dose: 200 mls/hr Magnesium Sulfate 2 gm/ Premix 50 mls @ 25 mls/hr IV ONETIME ONE Stop: 01/19/17 11:46 Last Admin: 01/19/17 11:07 Dose: 25 mls/hr Midazolam HCl (Versed 1 Mg/Ml) 5 mg IVPUSH ONETIME ONE Stop: 01/16/17 15:35 Last Admin: 01/17/17 12:25 Dose: Not Given Midazolam HCl (Versed 1 Mg/Ml) Confirm Administered Dose 6 mg .ROUTE .STK-MED ONE Stop: 01/16/17 15:47 Last Admin: 01/16/17 15:49 Dose: Not Given Morphine Sulfate (Morphine) 2 mg IVPUSH Q2H PRN PRN Reason: Pain (severe 7-10) Stop: 01/17/17 16:19 Naloxone HCl (Narcan) 2 mg IVPUSH ONETIME ONE Stop: 01/16/17 14:03 Last Admin: 01/16/17 14:52 Dose: 2 mg Naloxone HCl (Narcan) Confirm Administered Dose 4 mg .ROUTE .STK-MED ONE Stop: 01/16/17 13:50 Last Admin: 01/17/17 12:25 Dose: Not Given Pantoprazole Sodium (Protonix Iv) 40 mg IVPUSH DAILY [facility] Last Admin: 01/17/17 09:42 Dose: 40 mg Potassium Chloride (Klor-Con M20) 40 meq PO BID [facility] Stop: 01/19/17 09:01 Last Admin: 01/19/17 09:03 Dose: 40 meq Succinylcholine Chloride (Quelicin) 100 mg IV ONETIME ONE Stop: 01/16/17 14:04 Last Admin: 01/16/17 14:52 Dose: 100 mg Succinylcholine Chloride (Quelicin) 200 mg .ROUTE .STK-MED ONE Stop: 01/16/17 22:23 Venlafaxine HCl (Effexor Xr) 75 mg PO DAILY [facility] Stop: 01/19/17 09:01 Last Admin: 01/19/17 09:04 Dose: 75 mg - Exam Quality Assessment: DVT Prophylaxis General: Alert, Oriented, Cooperative HEENT: Pupils Equal, Pupils Reactive, EOMI Neck: Supple, Trachea Midline Lungs: Normal Respiratory Effort, Decreased Breath Sounds Cardiovascular: Regular Rate, Regular Rhythm GI/Abdominal Exam: Normal Bowel Sounds, Soft, Non-Tender, No Organomegaly, No Distention (Female) Exam: Deferred Back Exam: Normal Inspection Extremities: Normal Inspection Skin: Warm Neurological: No New Focal Deficit Psy/Mental Status: Alert, Normal Affect, Normal Mood - Problem List Review Problem List Initiated/Reviewed/Updated: Yes - My Orders Last 24 Hours: My Active Orders 01/20/17 13:47 ClonazePAM [KlonoPIN] 0.5 mg PO BEDTIME PRN 01/20/17 18:00 Codeine/Promethazine [Phenergan with Codeine] 10 ml PO Q6HR 01/21/17 09:00 Saccharomyces Boulardii [Florastor] 250 mg PO DAILY Vitamin B Complex with C [Super B With Vitamin C] 2 cap PO DAILY 01/21/17 11:05 CRP [C-REACTIVE PROTEIN] [CHEM] Routine 01/21/17 11:12 Admission Status [Patient Status] [ADT] Routine 01/22/17 05:00 BMP [BASIC METABOLIC PANEL,BMP] [CHEM] DAILY CBC WITH AUTO DIFF [HEME] DAILY CRP [C-REACTIVE PROTEIN] [CHEM] DAILY 01/23/17 05:00 BMP [BASIC METABOLIC PANEL,BMP] [CHEM] DAILY CBC WITH AUTO DIFF [HEME] DAILY CRP [C-REACTIVE PROTEIN] [CHEM] DAILY 01/24/17 05:00 BMP [BASIC METABOLIC PANEL,BMP] [CHEM] DAILY CBC WITH AUTO DIFF [HEME] DAILY CRP [C-REACTIVE PROTEIN] [CHEM] DAILY - Plan Plan:: Assessment: 1. Suicidal gesture by multiple drug overdose. 2. Acute respiratory failure requiring intubation and mechanical ventilation; s/ p extubation. 3. Leukocytosis with RUL PNA--->HCAP vs aspiration PNA 3. Alcohol abuse with tendency for withdrawal. Plan: 1. Follow O2 requirements; add low dose steroid; continue pulmonary toilet. 2. IV fluid hydration with 0.45% normal saline at 75 mL/h--.DCd. 3. Bronchodilator therapy with albuterol and ipratropium via nebulizer every 4 hours as needed. 4. Levoquin/Zosyn emperically for HCAP. 5. DVT prophylaxis with Lovenox and SCDs. 6. Addiction counseling consult with Haris Doshi and psychiatric evaluation by Dr. Kinney when patient is stable-->completed; DC after infection has been. 8. Social service evaluation for discharge planning. LOS>96 hours, stay has been extended with needed Tx for PNA-->DC 24-48 hours. CODE STATUS: Full code.
[2017-01-21] MEDS ORDERED: Magnesium Sulfate/Water 2 GM in Premix Bag 1 BAG IV ONE (13:21)
[2017-01-21] MEDS: Levofloxacin/Dextrose 5%-Water 750 MG in Premix Bag 1 BAG IV SCH (17:56)
[2017-01-21] MEDS: Ibuprofen 600 MG Tab PO PRN (19:45)
[2017-01-21] MEDS: Benzonatate 100 MG Cap PO PRN (19:47)
[2017-01-21] MEDS: Thiamine 100 MG Tab PO SCH (20:41)
[2017-01-22] MEDS: Piperacillin/Tazobactam 4.5 GM in Sodium Chloride 0.9% 100 ML IV SCH ×2 (03:44→11:11)
[2017-01-22] MEDS: Acetaminophen 325 MG Tab PO PRN (05:23)
[2017-01-22] MEDS: Codeine/Promethazine 10-6.25 MG/5 ML Syrup 5 ML UD Cup PO SCH ×2 (06:52→11:12)
[2017-01-22] MEDS: Biotin/Folic Acid/Vitamin C/Vitamin B Complex Tab PO SCH (08:13)
[2017-01-22] MEDS: Saccharomyces Boulardii (Probiotic) 250 MG Cap PO SCH (08:14)
[2017-01-22] MEDS: Vitamin B Complex With Vitamin C Cap PO SCH (08:15)
[2017-01-22] MEDS: Venlafaxine 75 MG Cap.ER PO SCH (08:15)
[2017-01-22] MEDS: Enoxaparin 40 MG/0.4 ML Syringe SUBCUT SCH (08:15)
[2017-01-22] MEDS: Pantoprazole 40 MG Tab.CR PO SCH (08:15)
[2017-01-22 08:16] VITALS: BP 124/62
[2017-01-22] MEDS: Lisinopril 5 MG Tab PO SCH (08:16)
[2017-01-22] MEDS: Benzonatate 100 MG Cap PO PRN (11:14)
[2017-01-22] MEDS ORDERED: Pneumococcal Polyvalent-23 Vaccine 0.5 ML SDV IM ONE (12:00)
--- NOTE | 2017-01-22 14:25 | PCM.DCSUM1 ---
Discharge Summary - Hospital Course Free Text/Narrative:: 51 year old female who made a suicide gesture, required intubation for respiratory support. The patient was extubated, developed a white count and treatment was initiated for HCAP. During her hospitalization, she was seen by psych as well as substance abuse. OP psych has been arranged with substance abuse support if needed. She has been prescribed Levoquin for 5 days. Primary Dx Suicide gesture with respiratory depression Hypoxia Major depression Anxiety disorder HCAP HTN Disposition Home Activity As tolerated Diet heart healthy Follow up appts Dr Kinney, 02/11 PCP, TBD Medications Lisinopril 5 mg daily Florastor 250 mg daily Levoquin 500 mg daily Tessalon perles 100 mg TID prn cough Effexor XR 75 m tabs daily Instructions Avoid ETOH, tobacco. - Discharge Data Discharge Date: 01/22/17 Discharge Disposition: Home, Self-Care 01 Condition: Good - Patient Summary/Data Consults: Consultations 01/17/17 12:54 Consult for Substance Abuse [CONS] Routine Consult to Physician [CONS] Routine - Patient Instructions Diet: Heart Healthy Diet Activity: As Tolerated Driving: Do Not Drive (avoid driving today) Showering/Bathing: May Shower Notify Provider of: Fever, Nausea and/or Vomiting - Discharge Plan Prescriptions/Med Rec: Benzonatate [Tessalon Perles] 100 mg PO TID PRN #90 cap PRN Reason: Cough Lisinopril [Prinivil] 5 mg PO BID #60 tablet Venlafaxine [Effexor XR] 150 mg PO DAILY #60 cap.er Home Medications: Home Meds Multivitamin [Gummi Bear Multivitamin] 1 tab PO DAILY 12/28/14 [History] Vitamin B Complex 2 cap PO DAILY 12/28/14 [History] Cyclobenzaprine [Flexeril] 10 mg PO BID PRN 09/09/16 [History] Lisinopril/Hydrochlorothiazide [Lisinopril-Hctz 10-12.5 mg Tab] 1 tab PO DAILY 09/09/16 [History] Phenazopyridine HCl 200 mg PO TID PRN 09/09/16 [History] ClonazePAM [KlonoPIN] 0.5 tab PO BEDTIME PRN 01/17/17 [History] Benzonatate [Tessalon Perles] 100 mg PO TID PRN #90 cap 01/22/17 [Rx] Lisinopril [Prinivil] 5 mg PO BID #60 tablet 01/22/17 [Rx] Venlafaxine [Effexor XR] 150 mg PO DAILY #60 cap.er 01/22/17 [Rx] Patient Handouts: Self-Destructive Behavior, Suicidal Feelings: How to Help Yourself, Community-Acquired Pneumonia, Adult, [id number], Alcohol Withdrawal , [id number] Referrals: Inocencio Kinney MD [Physician] - 02/08/17 1:30 pm (Psychiatry follow-up. [phone]. [address], [place]. Arrive at 1:00 pm, second floor, second desk. Bring your insurance cards and ID. ) PCP,None [Primary Care Provider] - - Discharge Summary/Plan Comment DC Time >30 min.: No - General Info Date of Service: 01/16/17 Functional Status: Reports: Tolerating Diet, Ambulating, Urinating - Review of Systems General: Reports: No Symptoms HEENT: Reports: No Symptoms Pulmonary: Reports: No Symptoms Cardiovascular: Reports: No Symptoms Gastrointestinal: Reports: No Symptoms Genitourinary: Reports: No Symptoms Musculoskeletal: Reports: No Symptoms Skin: Reports: No Symptoms Neurological: Reports: No Symptoms Psychiatric: Reports: No Symptoms - Patient Data Vitals - Most Recent: Last Vital Signs Temp 36.4 C 01/22/17 07:42 Pulse 62 01/22/17 07:42 Resp 18 01/22/17 07:42 BP 124/62 01/22/17 08:16 Pulse Ox 97 01/22/17 07:42 Weight - Most Recent: 72.167 kg I&O - Last 24 hours: Intake & Output 01/21/17 01/22/17 01/22/17 22:59 06:59 14:59 Intake Total 2395 250 50 Balance 2395 250 50 Lab Results - Last 24 hrs: Laboratory Results - last 24 hr 01/22/17 01/22/17 Range/Units 05:30 05:30 WBC 8.23 (3.98-10.04) K/mm3 RBC 3.41 L (3.98-5.22) M/mm3 Hgb 10.2 L (11.2-15.7) gm/L Hct 30.7 L (34.1-44.9) % MCV 90.0 (79.4-94.8) fl MCH 29.9 (25.6-32.2) pg MCHC 33.2 (32.2-35.5) g/dl RDW Std Deviation 43.6 (36.4-46.3) fL Plt Count 238 (182-369) K/mm3 MPV 9.2 L (9.4-12.3) fl Neut % (Auto) 48.6 (34.0-71.1) % Lymph % (Auto) 25.2 (19.3-51.7) % Lyman % (Auto) 15.9 H (4.7-12.5) % Eos % (Auto) 9.1 H (0.7-5.8) Baso % (Auto) 0.6 (0.1-1.2) % Neut # (Auto) 4.00 (1.56-6.13) K/mm3 Lymph # (Auto) 2.07 (1.18-3.74) K/mm3 Lyman # (Auto) 1.31 H (0.24-0.36) K/mm3 Eos # (Auto) 0.75 H (0.04-0.36) K/mm3 Baso # (Auto) 0.05 (0.01-0.08) K/mm3 Manual Slide Review Normal smear Sodium 145 (136-145) mEq/L Potassium 3.5 (3.5-5.1) mEq/L Chloride 109 H (98-107) mEq/L Carbon Dioxide 27 (21-32) mEq/L Anion Gap 12.5 (5-15) BUN 5 L (7-18) mg/dL Creatinine 0.6 (0.55-1.02) mg/dL Est Cr Clr Drug Dosing 105.45 mL/min Estimated GFR (MDRD) > 60 (>60) mL/min BUN/Creatinine Ratio 8.3 L (14-18) Glucose 92 (74-106) mg/dL Calcium 8.1 L (8.5-10.1) mg/dL C-Reactive Protein 9.6 H* (<1.0) mg/dL VIKTORIA Results - Last 24 hrs: Microbiology 01/18/17 17:15 Aerobic Blood Culture - Preliminary Blood - Venous NO GROWTH AFTER 3 DAYS Anaerobic Blood Culture - Preliminary NO GROWTH AFTER 3 DAYS Med Orders - Current: Current Medications Acetaminophen (Tylenol) 650 mg PO Q6H PRN PRN Reason: Headache/Pain Last Admin: 01/22/17 05:23 Dose: 650 mg Albuterol/Ipratropium (Duoneb 3.0-0.5 Mg/3 Ml) 3 ml NEB Q4H PRN PRN Reason: Shortness Of Breath/wheezing Benzonatate (Tessalon Perles) 200 mg PO TID PRN PRN Reason: Cough Last Admin: 01/22/17 11:14 Dose: 200 mg Clonazepam (Klonopin) 0.5 mg PO BEDTIME PRN PRN Reason: Sleep Last Admin: 01/20/17 21:41 Dose: 0.5 mg Enoxaparin Sodium (Lovenox) 40 mg SUBCUT DAILY [facility] Last Admin: 01/22/17 08:15 Dose: 40 mg Hydralazine HCl (Apresoline) 10 mg IVPUSH Q2H PRN PRN Reason: Hypertension Levofloxacin/Dextrose 750 mg/ (Premix) 150 mls @ 100 mls/hr IV Q24H [facility] Last Admin: 01/21/17 17:56 Dose: 100 mls/hr Piperacillin Sod/Tazobactam (Sod 4.5 gm/ Sodium Chloride) 100 mls @ 25 mls/hr IV Q8H [facility] Last Admin: 01/22/17 11:11 Dose: 25 mls/hr Ibuprofen (Motrin) 600 mg PO Q8H PRN PRN Reason: Headache/Pain Last Admin: 01/21/17 19:45 Dose: 600 mg Lisinopril (Prinivil) 5 mg PO BID [facility] Last Admin: 01/22/17 08:16 Dose: Not Given Ondansetron HCl (Zofran) 4 mg IV Q6H PRN PRN Reason: Nausea/Vomiting Pantoprazole Sodium (Protonix) 40 mg PO DAILY [facility] Last Admin: 01/22/17 08:15 Dose: 40 mg Promethazine HCl/Codeine (Phenergan With Codeine) 10 ml PO Q6HR [facility] Last Admin: 01/22/17 11:12 Dose: Not Given Saccharomyces Boulardii (Florastor) 250 mg PO DAILY [facility] Last Admin: 01/22/17 08:14 Dose: 250 mg Sodium Chloride (Saline Flush) 10 ml FLUSH ASDIRECTED PRN PRN Reason: Keep Vein Open Last Admin: 01/16/17 14:52 Dose: 10 ml Thiamine HCl (Vitamin B-1) 100 mg PO BEDTIME [facility] Last Admin: 01/21/17 20:41 Dose: 100 mg Venlafaxine HCl (Effexor Xr) 150 mg PO DAILY [facility] Last Admin: 01/22/17 08:15 Dose: 150 mg Vitamin B Complex/Vit C/Folic Acid (Nephrocaps) 1 tab PO DAILY [facility] Last Admin: 01/22/17 08:13 Dose: 1 tab Vitamin B Complex/Vitamin C (Super B With Vitamin C) 2 cap PO DAILY [facility] Last Admin: 01/22/17 08:15 Dose: 2 cap Discontinued Medications Bupropion HCl (Wellbutrin Xl) 150 mg PO DAILY [facility] Cyclobenzaprine HCl (Flexeril) 10 mg PO BID PRN PRN Reason: Pain Etomidate (Amidate) 20 mg IVPUSH ONETIME ONE Stop: 01/16/17 14:04 Last Admin: 01/16/17 14:52 Dose: 20 mg Etomidate (Amidate) 40 mg IVPUSH .STK-MED ONE Stop: 01/16/17 22:23 Fluconazole (Diflucan) 150 mg PO ONETIME ONE Stop: 01/21/17 09:01 Last Admin: 01/21/17 08:36 Dose: 150 mg Sodium Chloride (Normal Saline) 1,000 mls @ 125 mls/hr IV ASDIRECTED [facility] Last Admin: 01/17/17 11:12 Dose: 125 mls/hr Propofol (Diprivan 100 Ml) 100 mls @ 1.89 mls/hr IV TITRATE [facility]; 5 MCG/KG/MIN PRN Reason: Protocol Last Titration: 01/16/17 21:41 Dose: 25 mcg/kg/min, 9.45 mls/hr Acetylcysteine 10,000 mg/ (Dextrose/Water) 300 mls @ 300 mls/hr IV ASDIRECTED [facility] Stop: 01/16/17 18:29 Last Admin: 01/16/17 17:45 Dose: 300 mls/hr Propofol (Diprivan 100 Ml) 100 mls @ 10.35 mls/hr IV TITRATE [facility]; 25 MCG/KG/MIN PRN Reason: Protocol Last Admin: 01/17/17 03:51 Dose: 50 mcg/kg/min, 20.7 mls/hr Magnesium Sulfate 2 gm/ Premix 50 mls @ 25 mls/hr IV ASDIRECTED [facility] Stop: 01/17/17 18:28 Last Admin: 01/17/17 16:54 Dose: 25 mls/hr Sodium Chloride (Sodium Chloride 0.45%) 1,000 mls @ 75 mls/hr IV ASDIRECTED [facility] Stop: 01/19/17 03:00 Last Infusion: 01/19/17 03:40 Dose: 50 mls/hr Sodium Chloride (Sodium Chloride 0.45%) 1,000 mls @ 50 mls/hr IV ASDIRECTED [facility] Last Admin: 01/21/17 03:37 Dose: 50 mls/hr Piperacillin Sod/Tazobactam (Sod 4.5 gm/ Sodium Chloride) 100 mls @ 200 mls/hr IV ONETIME ONE Stop: 01/18/17 19:29 Last Admin: 01/18/17 19:30 Dose: 200 mls/hr Magnesium Sulfate 2 gm/ Premix 50 mls @ 25 mls/hr IV ONETIME ONE Stop: 01/19/17 11:46 Last Admin: 01/19/17 11:07 Dose: 25 mls/hr Magnesium Sulfate 2 gm/ Premix 50 mls @ 25 mls/hr IV ONETIME ONE Stop: 01/21/17 15:20 Last Admin: 01/21/17 14:46 Dose: 25 mls/hr Midazolam HCl (Versed 1 Mg/Ml) 5 mg IVPUSH ONETIME ONE Stop: 01/16/17 15:35 Last Admin: 01/17/17 12:25 Dose: Not Given Midazolam HCl (Versed 1 Mg/Ml) Confirm Administered Dose 6 mg .ROUTE .STK-MED ONE Stop: 01/16/17 15:47 Last Admin: 01/16/17 15:49 Dose: Not Given Morphine Sulfate (Morphine) 2 mg IVPUSH Q2H PRN PRN Reason: Pain (severe 7-10) Stop: 01/17/17 16:19 Naloxone HCl (Narcan) 2 mg IVPUSH ONETIME ONE Stop: 01/16/17 14:03 Last Admin: 01/16/17 14:52 Dose: 2 mg Naloxone HCl (Narcan) Confirm Administered Dose 4 mg .ROUTE .STK-MED ONE Stop: 01/16/17 13:50 Last Admin: 01/17/17 12:25 Dose: Not Given Pantoprazole Sodium (Protonix Iv) 40 mg IVPUSH DAILY [facility] Last Admin: 01/17/17 09:42 Dose: 40 mg Pneumococcal Polyvalent Vaccine (Pneumovax 23) 0.5 ml IM .ONCE ONE Stop: 01/22/17 12:01 Last Admin: 01/22/17 13:10 Dose: 0.5 ml Potassium Chloride (Klor-Con M20) 40 meq PO BID [facility] Stop: 01/19/17 09:01 Last Admin: 01/19/17 09:03 Dose: 40 meq Succinylcholine Chloride (Quelicin) 100 mg IV ONETIME ONE Stop: 01/16/17 14:04 Last Admin: 01/16/17 14:52 Dose: 100 mg Succinylcholine Chloride (Quelicin) 200 mg .ROUTE .STK-MED ONE Stop: 01/16/17 22:23 Venlafaxine HCl (Effexor Xr) 75 mg PO DAILY [facility] Stop: 01/19/17 09:01 Last Admin: 01/19/17 09:04 Dose: 75 mg - Exam Quality Assessment: Reports: DVT Prophylaxis General: Reports: Alert, Oriented, Cooperative, No Acute Distress HEENT: Reports: Pupils Equal, Pupils Reactive, EOMI Neck: Reports: Supple, Trachea Midline Lungs: Reports: Normal Respiratory Effort, Decreased Breath Sounds Cardiovascular: Reports: Regular Rate, Regular Rhythm GI/Abdominal Exam: Normal Bowel Sounds, Soft, Non-Tender, No Organomegaly, No Distention (Female) Exam: Deferred Rectal (Female) Exam: Deferred Back Exam: Reports: Normal Inspection Extremities: Normal Inspection, Normal Range of Motion, Non-Tender, No Pedal Edema Skin: Reports: Warm Neurological: Reports: No New Focal Deficit Psy/Mental Status: Reports: Alert, Normal Affect, Normal Mood Discharge Operative/Procedures - Procedures Performed Intubation Indication: Airway Protection *Q Meaningful Use (DIS) - VTE *Q VTE Criteria *Q: - Stroke *Q Stroke Criteria *Q: - AMI *Q AMI Criteria *Q:
== END 2017-01-22 15:15 | disposition home or self-care (01) | DRG 917 ==
LOC: JD.ED 13:50 → JD.ICU 15:41
PROVIDERS: ADMIT Hospitalist; ATTEND Hospitalist
DX: T42.4X2A Poisoning by benzodiazepines, intentional self-harm, initial encounter (principal); J96.00 Acute respiratory failure, unspecified whether with hypoxia or hypercapnia; F33.3 Major depressive disorder, recurrent, severe with psychotic symptoms; T48.1X2A Poisoning by skeletal muscle relaxants [neuromuscular blocking agents], intentional self-harm, initial encounter; T39.312A Poisoning by propionic acid derivatives, intentional self-harm, initial encounter; T39.1X2A Poisoning by 4-Aminophenol derivatives, intentional self-harm, initial encounter; F10.129 Alcohol abuse with intoxication, unspecified; Y90.0 Blood alcohol level of less than 20 mg/100 ml; F41.9 Anxiety disorder, unspecified; I10 Essential (primary) hypertension; Z88.8 Allergy status to other drugs, medicaments and biological substances; Z88.6 Allergy status to analgesic agent; Z91.040 Latex allergy status; Z91.011 Allergy to milk products; Z79.899 Other long term (current) drug therapy
CPT/HCPCS: 31500; 36415; 36600; 51702; 70450; 70450-26; 71010; 71010-26; 71020; 71020-26; 80048; 80053; 80306; 81001; 82550; 82803; 82962; 83735; 84100; 84484; 85025; 86140; 87040; 90732; 93005; 93010; 94003; 96365; 96366; 96374; 96375; 99291; A9270; A9270-GY; C9113; G0480; J0330; J1650; J1956; J2310; J2543; J3475; J3490; J7030; J7040; J7050; J7060

== ENCOUNTER 2021-08-18 21:21 | Emergency (ER) | payer BC, OTHER ==
[2021-08-18 21:42] VITALS: BP 139/64; PULSE 77
== END 2021-08-18 23:51 | disposition home or self-care (01) ==
LOC: SUPCPDRO 21:21 → JD.ED 21:21
DX: R47.01 Aphasia (principal); I10 Essential (primary) hypertension; Z91.040 Latex allergy status; Z91.011 Allergy to milk products; Z88.8 Allergy status to other drugs, medicaments and biological substances; Z88.5 Allergy status to narcotic agent; Z79.899 Other long term (current) drug therapy
CPT/HCPCS: 36415; 70450; 70450-26; 80053; 83735; 85025; 85610; 93005; 99285-25

== ENCOUNTER 2023-01-13 23:37 | Emergency (ER) | payer MEDICAID ==
[2023-01-14] MEDS ORDERED: HYDROmorphone 1 MG/ML Syringe IM ONE (00:20)
[2023-01-14] MEDS ORDERED: Promethazine 25 MG/ML SDV IM ONE (00:20)
[2023-01-14] MEDS ORDERED: predniSONE 20 MG Tab PO ONE (00:20)
[2023-01-14 01:23] VITALS: BP 160/85; PULSE 74
== END 2023-01-14 01:21 | disposition home or self-care (01) ==
LOC: JD.ED 23:37
DX: M54.50 Low back pain, unspecified (principal); M46.1 Sacroiliitis, not elsewhere classified; I10 Essential (primary) hypertension; Z79.899 Other long term (current) drug therapy; Z91.040 Latex allergy status; Z88.5 Allergy status to narcotic agent; Z88.8 Allergy status to other drugs, medicaments and biological substances
CPT/HCPCS: 96372; 99283; J1170; J2550; J7512

== ENCOUNTER 2024-10-06 02:32 | Emergency (ER) | payer MEDICAID, OTHER ==
[2024-10-06] MEDS: Sodium Chloride 0.9% 1,000 ML IV ONE (03:15)
[2024-10-06] MEDS: HYDROmorphone 1 MG/ML Syringe IVPUSH ONE (03:15)
[2024-10-06 03:24] LABS: APPEARANCE,URINE CLEAR (Clear); BILIRUBIN,URINE NEGATIVE (Negative); COLOR,URINE LIGHT YELLOW (Yellow); GLUCOSE,URINE NEGATIVE (Negative); KETONES,URINE NEGATIVE (Negative); LEUKOCYTE ESTERASE,URINE NEGATIVE (Negative); NITRITE,URINE NEGATIVE (Negative); OCCULT BLOOD,URINE NEGATIVE (Negative); PROTEIN,URINE NEGATIVE (Negative); UROBILINOGEN,URINE 0.2 (0.2-1.0)
[2024-10-06 03:24] LABS: BASOPHILS ABSOLUTE AUTO 0.1 K/mm3 (0.0-0.2); BASOPHILS PERCENT AUTO 0.7 % (0.0-1.0); EOSINOPHILS ABSOLUTE AUTO 0.3 K/mm3 (0.0-0.4); EOSINOPHILS PERCENT AUTO 3.1 % (0.0-6.0); HEMATOCRIT 33.5 % (37.0-47.0); HEMOGLOBIN 10.9 gm/dl (12.0-16.0); IMMATURE GRAN ABSOLUTE AUTO 0.04 K/mm3 (0.00-0.05); IMMATURE GRAN PERCENT AUTO 0.4 % (0.0-0.4); LYMPHOCYTES ABSOLUTE AUTO 2.8 K/mm3 (1.0-4.8); LYMPHOCYTES PERCENT AUTO 25.3 % (24.0-44.0); MEAN CORPUSCULAR HEMOGLOBIN 31.1 pg (28.0-32.0); MEAN CORPUSCULAR HGB CONC 32.5 g/dl (32.0-36.0); MEAN CORPUSCULAR VOLUME 95.4 fl (83.0-99.0); MEAN PLATELET VOLUME 8.7 fl (9.4-12.3); MONOCYTES ABSOLUTE AUTO 1.1 K/mm3 (0.0-0.8); MONOCYTES PERCENT AUTO 9.5 % (0.0-8.0); NEUTROPHILS ABSOLUTE AUTO 6.8 K/mm3 (1.8-7.7); PLATELET COUNT,PLT 462 K/mm3 (150-400); RED BLOOD CELL COUNT 3.51 M/mm3 (4.10-5.30)
[2024-10-06 03:44] LABS: A/G RATIO 0.9 (1-2); ALBUMIN 3.3 g/dl (3.4-5.0); ANION GAP 11.9 (5-15); BILIRUBIN TOTAL 0.5 mg/dL (0.2-1.0); BUN/CREATININE RATIO 18.6 (14-18); CALCIUM 9.1 mg/dL (8.5-10.1); CREATININE 0.7 mg/dL (0.55-1.02); EST CRCL DRUG DOSING (CG) 69.81 mL/min; POTASSIUM,K 3.9 mEq/L (3.5-5.1); PROTEIN TOTAL,TP 6.8 g/dl (6.4-8.2)
[2024-10-06] MEDS ORDERED: Sodium Chloride 0.9% 10 ML Syringe FLUSH PRN (03:46)
[2024-10-06] MEDS: diphenhydrAMINE 50 MG/ML SDV IVPUSH ONE (04:04)
[2024-10-06] MEDS: methylPREDNISolone Sodium Succinate 125 MG/2 ML SDV IVPUSH ONE (04:04)
[2024-10-06] MEDS: Iopamidol 612 MG/ML 100 ML Bottle IVPUSH ONE (04:23)
[2024-10-06] MEDS: Sodium Chloride 0.9% 10 ML Syringe FLUSH PRN (04:23)
[2024-10-06 06:26] VITALS: BP 133/67; PULSE 75
== END 2024-10-06 06:00 | disposition home or self-care (01) ==
LOC: JD.ED 02:32
DX: G89.18 Other acute postprocedural pain (principal); M54.50 Low back pain, unspecified; I10 Essential (primary) hypertension; Z79.899 Other long term (current) drug therapy; Z91.011 Allergy to milk products; Z91.040 Latex allergy status; Z88.5 Allergy status to narcotic agent; Z88.8 Allergy status to other drugs, medicaments and biological substances
CPT/HCPCS: 36415; 72129; 72132; 80053; 81003; 83690; 85025; 96361; 96374; 96375; 99284; J1171; J1200; J2919; J7030; Q9967